=== PATIENT | female | born 2000 | race Caucasian/White ===

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

== ENCOUNTER 2024-02-13 09:01 | Inpatient (IN) | payer OTHER, SELFPAY ==
[2024-02-13] VITALS (14 sets, daily range): BP systolic 93–118; BP diastolic 42–92; PULSE 116–137; RESP 16–25; TEMP 37.2–39.6; O2SAT 94–99; BMI 27.7; BMI 28.8
--- NOTE | 2024-02-13 10:42 | W.ED.BACK ---
HPI - Back Pain/Injury General: Chief Complaint: Back Pain/Injury Stated Complaint: kidney problems Time Seen by Provider: 02/13/24 09:03 History of Present Illness: 23-year-old female presents emergency room complaining of bilateral flank pain primarily on the right is also present on the left. She was seen a week ago for UTI started on antibiotic and she is behaving similarly tolerated. She did notice this seems to have improved she had a temp reported of 1051 at home this morning she took ibuprofen. She is tachycardic and generally not feeling well on arrival. Very nauseous no vomiting. Associated symptoms: Reports chills, dysuria, fatigue, fever(s) and urinary urgency; Deny abdominal pain Related Data Home Medications Medication Instructions Recorded Confirmed No Known Home Medications 02/13/24 02/13/24 Allergies Allergy/AdvReac Type Severity Reaction Status Date / Time No Known Allergies Allergy Verified 02/13/24 09:31 Review of Systems Const: Reports: fever(s), chills, fatigue and malaise Card: Denies: chest pain Resp: Denies: dyspnea GI: Denies: abdominal pain : Reports: dysuria, urinary frequency and urinary urgency Musc: Reports: back pain; Denies: neck pain Skin/Breast: Denies: rash PFSH ED PFSH: Medical History No pertinent past medical history Patient denies history of hypertension, hypercholesterolemia, lung, liver, heart, kidney or thyroid disorders, bleeding or clotting disorders, PE/DVT. PCP: René Almendarez Surgical History No history of previous surgery Family History Grandmother Hypertension maternal Mitral valve prolapse maternal Denies family history of Colon cancer Ovarian cancer Diabetes Hyperlipidemia Breast cancer Uterine cancer Stroke Social History Smoking and tobacco/nicotine status: never used tobacco/nicotine Substance/Drug Use: never Physical Exam Const: GENERAL APPEARANCE: cooperative ORIENTATION/CONSCIOUSNESS: Yes awake, Yes oriented to person, Yes oriented to place and Yes oriented to time HENMT: COMMON NORMALS: normocephalic, atraumatic and hearing grossly normal bilaterally HEAD & SCALP: normocephalic and atraumatic Resp: COMMON NORMALS: normal respiratory effort, No retractions, No use of accessory muscles and clear to auscultation bilaterally AUSCULTATION: clear to auscultation bilaterally Cardio: COMMON NORMALS: regular rhythm and No murmurs present (Cardio) RATE: tachycardic RHYTHM: regular rhythm GI: COMMON NORMALS: Soft to palpation and No hepatosplenomegaly present AUSCULTATION: Yes normoactive bowel sounds PALPATION: Yes Soft to palpation, No Tenderness to palpation present (GI), No Guarding due to palpation present (GI) and Yes No hepatosplenomegaly present : BLADDER/KIDNEY EXAM: Yes CVA tenderness Back/Pelvis: GENERAL BACK: Yes CVA tenderness CVA tenderness: bilateral Extremity: COMMON NORMALS: normal to inspection, capillary refill normal, no clubbing, cyanosis or edema, no calf tenderness and no pedal edema Neuro: SENSORIUM/ORIENTATION: Yes oriented to person, Yes oriented to place and Yes oriented to time Skin: COMMON NORMALS: no rashes or lesions noted GENERAL SKIN EXAM: no rashes or lesions noted Course Vital Signs: Vital signs: Vital Signs Temperature 100.2 F H 02/13/24 12:22 Pulse Rate 137 H 02/13/24 15:01 Respiratory Rate 25 H 02/13/24 14:04 Blood Pressure 106/92 02/13/24 15:01 Pulse Oximetry 97 02/13/24 15:01 Oxygen Delivery Me thod Room Air 02/13/24 14:04 MDM - Back Pain/Injury Medical Decision Making Patient presents tachycardic with a fever. White count elevated. She has failed outpatient antibiotic. Cultures have been done started on Rocephin continue IV fluids lactate 1.2. No documented blood pressures less than 90. Creatinine bilirubin or normal platelets. Lactate did not meet criteria. Patient given incremental fluid boluses due to her tachycardia. Labs 02/13/24 10:23 02/13/24 10:23 Radiology Impressions Abdomen/Pelvis CT 02/13/24 11:02 IMPRESSION: 1. Mild circumferential urinary bladder wall thickening and perivesicular edema a subtle right urothelial thickening. An ascending urinary tract infection could produce this appearance. 2. Additional findings, as above. Laboratory Results WBC 13.10 10^3/uL (3.29-11.43) H 02/13/24 10:23 RBC 4.95 10^6/uL (3.85-5.65) 02/13/24 10:23 Hgb 12.70 g/dL (11.27-16.99) 02/13/24 10:23 Hct 40.8 % (36-47) 02/13/24 10:23 MCV 82.4 fl (85-98) L 02/13/24 10:23 MCH 25.7 pg (27-33) L 02/13/24 10:23 MCHC 31.1 g/dL (30-55) 02/13/24 10:23 RDW 17.7 % (12.1-15.1) H 02/13/24 10:23 Plt Count 393 10^3/cmm (157-399) 02/13/24 10:23 MPV 9.8 fL (7.4-10.4) 02/13/24 10:23 Neut % (Auto) 69.7 % 02/13/24 10:23 Lymph % (Auto) 21.5 % 02/13/24 10:23 [place] % (Auto) 7.9 % 02/13/24 10:23 Eos % (Auto) 0.5 % 02/13/24 10:23 Baso % (Auto) 0.2 % 02/13/24 10:23 Neut # (Auto) 9.12 10^3/uL (1.8-7.7) H 02/13/24 10:23 Lymph # (Auto) 2.8 10^3/uL (0.8-4.8) 02/13/24 10:23 [place] # (Auto) 1.0 10^3/uL (0.2-0.9) H 02/13/24 10:23 Eos # (Auto) 0.1 10^3/uL (0.0-0.8) 02/13/24 10:23 Baso # (Auto) 0.0 10^3/uL (0.0-0.1) 02/13/24 10:23 Nucleated RBC % (auto) 0 % 02/13/24 10:23 Nucleated RBCs # 0.0 /100WBC 02/13/24 10:23 Sodium 140 mmol/L (136-145) 02/13/24 10:23 Potassium 3.9 mmol/L (3.5-5.1) 02/13/24 10:23 Chloride 101 mmol/L (98-107) 02/13/24 10:23 Carbon Dioxide 22 mmol/L (22-29) 02/13/24 10:23 Anion Gap 20.9 (5-19) H 02/13/24 10:23 BUN 10 mg/dL (6-20) 02/13/24 10:23 Creatinine 0.6 mg/dL (0.5-0.9) 02/13/24 10:23 GFR Calculation 126.2 mL/min (90-130) 02/13/24 10:23 Glucose 117 mg/dL (65-115) H 02/13/24 10:23 Calculated Osmolality 290 mOsm/kg (285-295) 02/13/24 10:23 Lactic Acid 1.6 mmol/L (0.5-2.2) 02/13/24 10:23 Calcium 9.4 mg/dL (8.5-10.5) 02/13/24 10:23 Total Bilirubin 0.6 mg/dL (0.15-1.2) 02/13/24 10:23 AST 42 U/L (0-32) H 02/13/24 10:23 ALT 54 U/L (0-33) H 02/13/24 10:23 Alkaline Phosphatase 94 U/L (35-105) 02/13/24 10:23 Total Protein 8.4 g/dL (6.6-8.7) 02/13/24 10:23 Albumin 4.3 g/dL (3.5-5.2) 02/13/24 10:23 Globulin 4.1 g/dL (1.3-4.6) 02/13/24 10:23 Procalcitonin 0.06 ng/mL (0-0.5) 02/13/24 10:23 HCG, Qual Negative (Negative) 02/13/24 10:23 Urine Color Yellow (Yellow) 02/13/24 12:25 Urine Appearance Cloudy (CLEAR) A 02/13/24 12:25 Urine pH 6.0 (5-7) 02/13/24 12:25 Ur Specific Junction 1.014 (1.005-1.030) 02/13/24 12:25 Urine Protein 2+ (Negative) A 02/13/24 12:25 Urine Glucose (UA) Negative (Normal) 02/13/24 12:25 Urine Ketones Trace (Negative) 02/13/24 12:25 Urine Blood 1+ (Negative) A 02/13/24 12:25 Urine Nitrate Positive (Negative) A 02/13/24 12:25 Urine Bilirubin Negative (Negative) 02/13/24 12:25 Urine Urobilinogen 1.0 mg/dL (Negative) 02/13/24 12:25 Ur Leukocyte Esterase 3+ (Negative) A 02/13/24 12:25 Urine RBC 0-2 /hpf (0-2) 02/13/24 12:25 Urine WBC >100 /hpf (0-5) H 02/13/24 12:25 Ur Squamous Epith Cells 0-5 /hpf (0-5) 02/13/24 12:25 Amorphous Sediment Not Reportable 02/13/24 12:25 Urine Bacteria 4+ /hpf (NONE) H 02/13/24 12:25 Hyaline Casts 2.87 /lpf 02/13/24 12:25 All radiology interpretation(s) finalized by discharge Discharge Plan Discharge Patient Disposition: Admitted As Inpatient Admit Provider: Jhony Schmidt Clinical Impression: Pyelonephritis of right kidney Condition: Stable Coding Level of Care Code ED Intelligent Systems Engineer for Aryan Zapata
[2024-02-13 10:43] LABS: Basophils % 0.2 %; Eosinophils # 0.1 10^3/uL (0.0-0.8); Eosinophils % 0.5 %; Hematocrit 40.8 % (36-47); Lymphocytes # 2.8 10^3/uL (0.8-4.8); Lymphocytes % 21.5 %; Mean Corpuscular HGB Conc 31.1 g/dL (30-55); Mean Corpuscular Hemoglobin 25.7 pg (27-33); Mean Corpuscular Volume 82.4 fl (85-98); Mean Platelet Volume 9.8 fL (7.4-10.4); Monocytes % 7.9 %; Neutrophils # 9.12 10^3/uL (1.8-7.7); Neutrophils % 69.7 %; Nucleated Red Blood Cells % 0 %; Platelet Count 393 10^3/cmm (157-399); Red Blood Count 4.95 10^6/uL (3.85-5.65); Red Cell Distribution Width 17.7 % (12.1-15.1)
[2024-02-13] MEDS: sodium chloride 0.9% 1,000 ML 999 ML IV ×2 (10:55→11:36)
[2024-02-13 10:56] LABS: Lactic Sepsis W/Reflex 1.6 mmol/L (0.5-2.2)
[2024-02-13 11:01] LABS: Alanine Aminotransferase 54 U/L (0-33); Albumin Level 4.3 g/dL (3.5-5.2); Alkaline Phosphatase 94 U/L (35-105); Anion Gap 20.9 (5-19); Aspartate Amino Transferase 42 U/L (0-32); Blood Urea Nitrogen 10 mg/dL (6-20); Calcium 9.4 mg/dL (8.5-10.5); Carbon Dioxide 22 mmol/L (22-29); Chloride 101 mmol/L (98-107); Creatinine Clr Calc Pharmacy 124.2459; Globulin 4.1 g/dL (1.3-4.6); Glomerular Filtration Rate 126.2 mL/min (90-130); Glucose 117 mg/dL (65-115); Osmolality Calculated 290 mOsm/kg (285-295); Potassium 3.9 mmol/L (3.5-5.1); Sodium 140 mmol/L (136-145); Total Bilirubin 0.6 mg/dL (0.15-1.2); Total Protein 8.4 g/dL (6.6-8.7)
--- NOTE | 2024-02-13 11:02 | CTR_ITS ---
PROCEDURE INFORMATION: Exam: CT Abdomen And Pelvis Without Contrast Exam date and time: 02/13/2024 11:50 AM Age: 23 years old Clinical indication: Abdominal pain; Flank; Lower; Additional info: Flank pain TECHNIQUE: Imaging protocol: Computed tomography of the abdomen and pelvis without contrast. Axial, coronal and sagittal reformatted images were created and reviewed. Radiation optimization: All CT scans at this facility use at least one of these dose optimization techniques: automated exposure control; mA and/or kV adjustment per patient size (includes targeted exams where dose is matched to clinical indication); or iterative reconstruction. COMPARISON: US pelvic complete* [id number] 09/25/2019 4:53 AM RADIATION DOSE METRICS: Total DLP (mGy-cm): 424 FINDINGS: Liver: Unremarkable. Gallbladder and biliary ducts: No radiodense gallstones. No biliary ductal dilatation. Pancreas: Unremarkable. Spleen: Unremarkable. Adrenal glands: Normal. No mass. Kidneys and ureters: Subtle right urothelial thickening. No radiodense calculi. No hydronephrosis. Stomach and bowel: No bowel wall thickening. No obstruction. No pneumatosis. Appendix: Normal. Intraperitoneal space: No free fluid. No organized fluid collection. No free air. Vasculature: Unremarkable. No aneurysm. Lymph nodes: Small mesenteric lymph nodes, nonspecific in appearance. No pathologically enlarged lymph nodes. Urinary bladder: Mild circumferential urinary bladder wall thickening and perivesicular edema. Reproductive: Intrauterine device in place. Bones/joints: No acute osseous abnormality. Soft tissues: Unremarkable. CT/CT kidney stone [id number] IMPRESSION: 1. Mild circumferential urinary bladder wall thickening and perivesicular edema a subtle right urothelial thickening. An ascending urinary tract infection could produce this appearance. 2. Additional findings, as above.
[2024-02-13 11:15] LABS: HCG, Serum Qual Negative (Negative)
[2024-02-13] MEDS: ondansetron 2 mg/ML SDV 2 mL 4 MG IVP (11:24)
[2024-02-13] MEDS: cefTRIAXone 1,000 mg SDV 1000 MG IVP (11:30)
[2024-02-13] MEDS: ketorolac 30 mg/mL INJ IVP (11:46)
[2024-02-13 12:48] LABS: Bilirubin Urine Negative (Negative); Blood Urine 1+ (Negative); Glucose Urine UA Negative (Normal); Ketones Urine Trace (Negative); Leukocyte Esterase Urine 3+ (Negative); Nitrate Urine Positive (Negative); Protein Urine 2+ (Negative); Specific Gravity, Urine 1.014 (1.005-1.030); Urine Appearance Cloudy (CLEAR); Urine Color Yellow (Yellow)
[2024-02-13 12:53] LABS: Add Urine Microscopic? YES; Bacteria Urine 4+ /hpf; Hyaline Casts Urine 2.87 /lpf; RBC Urine 0-2 /hpf (0-2); Squamous Epithelial Cell Urine 0-5 /hpf (0-5); WBC Urine >100 /hpf (0-5)
[2024-02-13 13:44] LABS: Add Urine Culture? Yes
[2024-02-13] MEDS: acetaminophen 325 mg Tablet 650 MG PO ×2 (14:33→19:35)
--- NOTE | 2024-02-13 14:52 | P.HP_ITS ---
Providers/Chief Complaint 2 Admitting Physician: Jhony Schmidt MD Primary Care Provider: René Almendarez, DIRECTOR OF RESIDENTIAL SERVICES-C Chief Complaint: kidney problems History of Present Illness Eileen Leigh is a 23 year old female with a past medical history of G2, P2, no significant past medical history, who presents [facility] due to fatigue, malaise, fevers, chills, nausea, vomiting, right flank pain for the last week. Patient tells me that she was diagnosed with a UTI roughly a week ago, she was treating herself with [id number] medications, however her symptomatology persisted, she reports right flank pain, increased urinary frequency, fevers, chills, nausea, vomiting, she denies being , Review of Systems 2 Const: Reports: fever(s), chills, fatigue and malaise GI: Reports: nausea and vomiting : Reports: flank pain Medications/Allergies Home Medications Medication Instructions Recorded Confirmed Last Taken Type No Known Home Medications 02/13/24 02/13/24 Unknown History Allergies Allergy/AdvReac Type Severity Reaction Status Date / Time No Known Allergies Allergy Verified 02/13/24 09:31 PFSH Acute 2 PFSH: Medical History No pertinent past medical history Patient denies history of hypertension, hypercholesterolemia, lung, liver, heart, kidney or thyroid disorders, bleeding or clotting disorders, PE/DVT. PCP: René Almendarez Surgical History No history of previous surgery Family History Grandmother Hypertension maternal Mitral valve prolapse maternal Denies family history of Colon cancer Ovarian cancer Diabetes Hyperlipidemia Breast cancer Uterine cancer Stroke Social History Smoking and tobacco/nicotine status: never used tobacco/nicotine Substance/Drug Use: never Vitals/I&O/Wt Last Vital Signs Temp 100.2 F H 02/13/24 12:22 Pulse 116 H 02/13/24 09:25 Resp 16 02/13/24 09:25 BP 107/62 02/13/24 09:25 Pulse Ox 99 02/13/24 09:25 O2 Del Method Room Air 02/13/24 09:25 Weight last 48 hrs Weight 64.41 kg Physical Exam 2 Const: COMMON NORMALS: no acute distress and patient oriented x3 HENMT: COMMON NORMALS: normocephalic HEAD & SCALP: normocephalic Neck/C-Spine: COMMON NORMALS: no JVD Resp: COMMON NORMALS: normal respiratory effort, No retractions, No use of accessory muscles and clear to auscultation bilaterally AUSCULTATION: clear to auscultation bilaterally Cardio: COMMON NORMALS: S1 normal heart sound present and S2 normal heart sound present RATE: tachycardic RHYTHM: regular rhythm HEART SOUNDS: S1 normal heart sound present and S2 normal heart sound present GI: COMMON NORMALS: Normal to inspection, nondistended, normoactive bowel sounds present, Soft to palpation and non-tender : OTHER: Right CVA tenderness Extremity: COMMON NORMALS: no calf tenderness and no pedal edema Neuro: COMMON NORMALS: patient oriented x3, CN's II-XII intact bilaterally and moves all extremities Psych: COMMON NORMALS: mental status grossly normal Data 02/13/24 10:23 02/13/24 10:23 Micro: Microbiology 02/13/24 10:19 Blood Culture - Preliminary Blood SPECIMEN COLLECTED 02/13/24 10:15 Blood Culture - Preliminary Blood SPECIMEN COLLECTED A&P Assessment and plan (1) Pyelonephritis of right kidney: (2) Sepsis: Plan Pyelonephritis right kidney, with sepsis ? Sepsis features met given tachycardia, febrile, source of infection, UTI, pyelonephritis, ? Plan ? IV fluids ? IV Zosyn ? Zofran for nausea ? Morphine for pain ? Tylenol for fevers ? Follow blood cultures ? Follow urine cultures ? Full code ? Lovenox for DVT prophylaxis Attestations 2 Medical Necessity Statement*: Patient requires hospitalization, inpatient, greater than 2 midnights, for pyelonephritis right kidney, sepsis Diagnoses Pyelonephritis of right kidney N12 Sepsis A41.9
[2024-02-13 15:24] LABS: Procalcitonin 0.06 ng/mL (0-0.5)
[2024-02-13] MEDS: morphine 4 mg/mL SDV 1 mL 1 MG IVP ×2 (15:46→19:55)
[2024-02-13 15:51] LABS: Estmated Average Glucose 97
[2024-02-13] MEDS: sodium chloride 0.9% 500 ML 999 ML IV (16:02)
[2024-02-13 16:32] LABS: C Reactive Protein 103.1 mg/L (0.0-4.9); Thyroid Stimulating Hormone 0.02 uIU/mL (0.27-4.20)
[2024-02-13] MEDS: ibuprofen 200 mg Tablet PO (16:45)
[2024-02-13] MEDS: sodium chloride 0.9% 1,000 ML 125 ML IV ×2 (16:47→22:58)
[2024-02-13] MEDS: piperacillin-tazobactam 3.375 GM in sodium chloride 0.9% (plus) 50 ML IV ×2 (16:50→22:58)
[2024-02-13] MEDS: enoxaparin 40 mg/0.4 mL Syringe SUBCUT (17:41)
--- NOTE | 2024-02-13 20:44 | ECG_ITS ---
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 Measurements Intervals [place] Rate: 122 P: 54 FL: 127 QRS: 20 QRSD: 77 T: 15 QT: 328 QTc: 469 Interpretive Statements SINUS TACHYCARDIA POSSIBLE RIGHT VENTRICULAR CONDUCTION DELAY [RSR (QR) IN V1/V2] NONSPECIFIC ST & T-WAVE ABNORMALITY ABNORMAL RHYTHM ECG No previous ECG available for comparison Electronically Signed On 02-13-2024 23:16:40 CDT by Norma Pulido M.D. [id number]
[2024-02-14] VITALS (110 sets, daily range): BP systolic 65–147; BP diastolic 39–88; PULSE 66–118; RESP 16–37; TEMP 36.8–39.4; O2SAT 71–99
[2024-02-14] MEDS: ibuprofen 200 mg Tablet PO ×2 (00:01→14:40)
[2024-02-14] MEDS: ketorolac 30 mg/mL INJ IVP (01:13)
--- NOTE | 2024-02-14 01:39 | PC.NURSE ---
This RN asked aide to recheck midnight BP. On recheck pt BP was 75/36. This RN went to assess pt and rechecked BP on other arm and got about the same BP. This RN placed the pt and trendelenburg and rechecked, BP was 87/51. Salome came to bedside and gave the verbal to switch continuous fluids to a bolus and transfer pt to ICU. Report called. Pt and mother updated.
--- NOTE | 2024-02-14 02:15 | PC.NURSE ---
Pt transferred to ICU at 0200.
[2024-02-14] MEDS: lactated ringers 1,000 ML 999 ML IV (02:54)
[2024-02-14 03:13] LABS: Basophils % 0.2 %; Eosinophils % 0.2 %; Hematocrit 31.2 % (36-47); Lymphocytes # 2.5 10^3/uL (0.8-4.8); Lymphocytes % 18.1 %; Mean Corpuscular HGB Conc 30.1 g/dL (30-55); Mean Corpuscular Hemoglobin 25.5 pg (27-33); Mean Corpuscular Volume 84.8 fl (85-98); Mean Platelet Volume 9.7 fL (7.4-10.4); Monocytes # 1.7 10^3/uL (0.2-0.9); Monocytes % 12.4 %; Neutrophils # 9.27 10^3/uL (1.8-7.7); Neutrophils % 68.6 %; Nucleated Red Blood Cells % 0 %; Platelet Count 240 10^3/cmm (157-399); Red Blood Count 3.68 10^6/uL (3.85-5.65); Red Cell Distribution Width 17.8 % (12.1-15.1); White Blood Count 13.53 10^3/uL (3.29-11.43)
[2024-02-14] MEDS: norepinephrine 4 MG/250 ML BAG 7.5 MG IV ×2 (03:33→15:18)
[2024-02-14 03:44] LABS: Anion Gap 13.4 (5-19); Blood Urea Nitrogen 6 mg/dL (6-20); Calcium 6.7 mg/dL (8.5-10.5); Carbon Dioxide 20 mmol/L (22-29); Chloride 113 mmol/L (98-107); Creatinine Clr Calc Pharmacy 126.4974; Glomerular Filtration Rate 126.2 mL/min (90-130); Glucose 155 mg/dL (65-115); Osmolality Calculated 297 mOsm/kg (285-295); Potassium 3.4 mmol/L (3.5-5.1); Sodium 143 mmol/L (136-145)
[2024-02-14] MEDS: sodium chloride 0.9% 1,000 ML 125 ML IV ×3 (04:03→16:37)
[2024-02-14 06:21] LABS: Alanine Aminotransferase 34 U/L (0-33); Alkaline Phosphatase 65 U/L (35-105); Aspartate Amino Transferase 23 U/L (0-32); Globulin 2.5 g/dL (1.3-4.6); Total Bilirubin 0.3 mg/dL (0.15-1.2); Total Protein 5.5 g/dL (6.6-8.7)
[2024-02-14] MEDS: piperacillin-tazobactam 3.375 GM in sodium chloride 0.9% (plus) 50 ML IV ×2 (07:39→14:44)
[2024-02-14] MEDS: acetaminophen 325 mg Tablet 650 MG PO (08:47)
[2024-02-14] MEDS: midodrine 5 mg TABLET PO (09:28)
[2024-02-14 10:04] LABS: Free T4 Free Thyroxine 2.05 ng/dL (0.82-1.77); T3 Free 2.9 PG/ML (2.0-4.4)
[2024-02-14] MEDS: albumin 50 G/200 ML BAG 60 G IV (13:19)
[2024-02-14] MEDS: midodrine 5 mg TABLET 10 MG PO (13:24)
--- NOTE | 2024-02-14 14:50 | P.PN_ITS ---
Subjective 2 Subjective: Patient was seen this morning, she is alert oriented x 3, following all commands, febrile this morning, she is on 2 of Levophed, she tells me that she is feeling quite well, no nausea, no vomiting or abdominal pain still having some right flank pain, Vitals/I&O/Wt Last Vital Signs Temp 98.2 F 02/14/24 12:00 Pulse 78 02/14/24 12:00 Resp 21 H 02/14/24 12:00 BP 95/55 02/14/24 12:00 Pulse Ox 97 02/14/24 09:30 O2 Del Method Room Air 02/13/24 23:57 02/13/24 02/14/24 02/14/24 22:59 06:59 14:59 Intake Total 3442.917 / 3442.917 2215.875 / 5658.792 1434.25 / 1434.25 Output Total 900 / 900 600 / 1500 Balance 2542.917 / 2542.917 1615.875 / 4158.792 1434.25 / 1434.25 Weight last 48 hrs Weight 71.35 kg Weight 66.814 kg Weight 64.41 kg Physical Exam 2 Const: COMMON NORMALS: no acute distress and patient oriented x3 Resp: COMMON NORMALS: normal respiratory effort, No retractions, No use of accessory muscles and clear to auscultation bilaterally AUSCULTATION: clear to auscultation bilaterally Cardio: COMMON NORMALS: regular rate, regular rhythm, S1 normal heart sound present and S2 normal heart sound present RATE: regular rate RHYTHM: r egular rhythm HEART SOUNDS: S1 normal heart sound present and S2 normal heart sound present GI: COMMON NORMALS: Normal to inspection, nondistended, normoactive bowel sounds present and non-tender Extremity: COMMON NORMALS: no pedal edema Neuro: COMMON NORMALS: patient oriented x3 Psych: COMMON NORMALS: mental status grossly normal Sepsis: Is patient septic: Yes Focused sepsis exam performed: Yes F ocused sepsis exam: DP PT pulses palpable, cap refill less than 2 seconds, no mottling Date exam was performed: 02/14/24 Time exam was performed: 08:30 Data 02/14/24 02:51 02/14/24 02:51 Micro: Microbiology 02/13/24 10:19 Blood Culture - Preliminary Blood NEGATIVE TO DATE 02/13/24 10:15 Blood Culture - Preliminary Blood NEGATIVE TO DATE A&P Assessment and plan (1) Pyelonephritis of right kidney: (2) Sepsis: (3) Septic shock: Plan Pyelonephritis right kidney, with sepsis ? Sepsis features met given tachycardia, febrile, source of infection, UTI, pyelonephritis, -Levophed at 2 -Last fever at 4 AM, has been afebrile since ? Plan ? IV fluids ? IV Zosyn ? Zofran for nausea ? Morphine for pain ? Tylenol for fevers ? Follow blood cultures ? Follow urine cultures -Wean off Levophed, will start on midodrine 10 every 8 hours, increase fluids to 125 cc, 1 dose albumin ? Full code ? Lovenox for DVT prophylaxis Attestations 2 Medical Necessity Statement*: Patient requires hospitalization for septic shock secondary to pyelonephritis Diagnoses Pyelonephritis of right kidney N12 Sepsis A41.9 Septic shock A41.9; R65.21
[2024-02-14] MEDS: TRAMadol 50 mg Tablet PO (15:22)
[2024-02-14] MEDS: LORazepam 2 mg/mL INJ 1 mL 0.5 MG IVP ×2 (15:27→17:43)
--- NOTE | 2024-02-14 15:34 | XRR_ITS ---
PROCEDURE INFORMATION: Exam: XR Chest Exam date and time: 02/14/2024 4:13 PM Age: 23 years old Clinical indication: Device placement; Patient HX: Lt side picc line; Additional info: Post picc insertion, paul placing in icu 7. Should be ready at 1600 TECHNIQUE: Imaging protocol: Radiologic exam of the chest. Views: 1 view. COMPARISON: CT kidney stone [id number] 02/13/2024 11:50 AM FINDINGS: Tubes, catheters and devices: Left upper extremity PICC with the tip at the superior vena cava. Lungs: Right middle lobe and right lower lobe airspace disease suspicious for pneumonia. Pleural spaces: No pleural effusion. No pneumothorax. Heart/Mediastinum: The cardiac silhouette and mediastinal contours are unremarkable. Bones/joints: Unremarkable for age. XR/XR chest 1V portable [id number] IMPRESSION: 1. Left upper extremity PICC with the tip at the superior vena cava. 2. Right middle lobe and right lower lobe airspace disease suspicious for pneumonia. Recommend followup chest imaging to insure resolution of these findings.
--- NOTE | 2024-02-14 16:08 | PC.NURSE ---
1500 C/o being cold, temp 99.6 oral, extra blankets given. C/o worse back pain. Notified Dr. Schmidt. New orders.
--- NOTE | 2024-02-14 16:11 | PC.NURSE ---
1550 Alison here to put in PIIC line. Patients mother at bedside helping calm her and encouraging deep breathing.
--- NOTE | 2024-02-14 16:13 | PC.NURSE ---
5835 called, updated on condition and why she appeared scared when he was talking to her on the phone a short time ago.
--- NOTE | 2024-02-14 16:47 | PICC.NOTE ---
Addendum entered by Alison Edward RN 02/15/24 13:33: LEFT basilic vein accessed x 1 stick Original Note: Triple lumen PICC placed to left basilic vein. Referred to vascular access nurse for PICC placement due to use of vasopressors. Risks and benefits discussed and informed consent obtained from pt. Right arm assessed with no viable veins found. Left arm assessed with left basilic vein measuring 3.9 mm, straight, and apparent best choice for placement. Using sterile technique and MST, right basilic vein accessed x 1 stick. Mid-arm circumference measured 10 cm from left AC 28 cm. Trimmed cath 41 cm with 5 cm external length noted. CXR shows tip to appear to be in the distal SVC. Awaiting radiologist report. Line secured with stat-lock. Insertion site covered with Biopatch, gauze, and TSM. Report given to bedside nurse, YAA Rivera.
[2024-02-14] MEDS: ondansetron 2 mg/ML SDV 2 mL 4 MG IVP (16:48)
[2024-02-14 17:10] LABS: Anion Gap 15.7 (5-19); Blood Urea Nitrogen 6 mg/dL (6-20); Calcium 7.2 mg/dL (8.5-10.5); Carbon Dioxide 19 mmol/L (22-29); Chloride 111 mmol/L (98-107); Creatinine Clr Calc Pharmacy 196.1186; Glomerular Filtration Rate 201.5 mL/min (90-130); Glucose 113 mg/dL (65-115); Osmolality Calculated 292 mOsm/kg (285-295); Potassium 3.7 mmol/L (3.5-5.1); Sodium 142 mmol/L (136-145)
[2024-02-14 17:11] LABS: Lactic Sepsis W/Reflex 0.9 mmol/L (0.5-2.2)
--- NOTE | 2024-02-14 17:19 | PC.NURSE ---
0930 Patient ask for oxygen, ask if having a little problem feeling like she's breathing easily, answered yes, Ox Sat at 89%. Placed on 2l N/C.
--- NOTE | 2024-02-14 17:25 | ECG_ITS ---
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 Measurements Intervals [place] Rate: 95 P: 7 SD: 141 QRS: 68 QRSD: 75 T: 45 QT: 330 QTc: 416 Interpretive Statements SINUS RHYTHM NONSPECIFIC ST & T-WAVE ABNORMALITY Compared to ECG 02/13/2024 20:53:38 Sinus tachycardia no longer present T-wave abnormality still present Electronically Signed On 02-15-2024 08:06:44 CDT by Thien Raymond M.D. [id number]
[2024-02-14] MEDS: enoxaparin 40 mg/0.4 mL Syringe SUBCUT (17:47)
--- NOTE | 2024-02-14 23:45 | ECG_ITS ---
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 Measurements Intervals [place] Rate: 119 P: 73 DC: 157 QRS: 72 QRSD: 76 T: 48 QT: 339 QTc: 477 Interpretive Statements SINUS TACHYCARDIA POSSIBLE RIGHT VENTRICULAR CONDUCTION DELAY [RSR (QR) IN V1/V2] NONSPECIFIC ST & T-WAVE ABNORMALITY ABNORMAL RHYTHM ECG Compared to ECG 02/14/2024 17:36:28 Sinus rhythm no longer present T-wave abnormality still present Electronically Signed On 02-15-2024 23:07:01 CDT by Norma Pulido M.D. [id number]
[2024-02-15] VITALS (50 sets, daily range): BP systolic 91–130; BP diastolic 46–83; PULSE 61–127; RESP 14–43; TEMP 35.9–37.4; O2SAT 82–98
[2024-02-15] MEDS: methylPREDNISolone sod succ 40 mg/mL INJ IVP ×2 (00:05→04:54)
[2024-02-15] MEDS: pantoprazole 40 mg SDV IVP ×2 (00:05→08:56)
[2024-02-15] MEDS: linezolid premix 600 MG/300 ML PREMIX 300 MG IV ×3 (00:05→22:48)
[2024-02-15] MEDS: piperacillin-tazobactam 3.375 GM in sodium chloride 0.9% (plus) 50 ML IV ×4 (00:06→22:48)
[2024-02-15] MEDS: azithromycin 500 MG in sodium chloride 0.9% 250 ML 250 MG IV (00:07)
[2024-02-15] MEDS: acetaminophen 325 mg Tablet 650 MG PO ×2 (00:24→19:45)
[2024-02-15] MEDS: ondansetron 2 mg/ML SDV 2 mL 4 MG IVP (00:27)
--- NOTE | 2024-02-15 00:56 | PC.NURSE ---
Patient has had complaints of increasing weakness, increasing shortness of breath, oxygen saturation as low as 83% on room air placed on 3.5 liters via nc to maintain saturation over 90%, color increasingly pale, c/o dizziness with activity, chest pain with activity. Lungs diminished, respirations shallow and rapid, tachycardic at times. Has been afebrile thus far. Physician notified of changes in respiratory status and overall change in condition. New orders received. Pt. mother remains at bedside.
[2024-02-15 00:59] LABS: MRSA PCR OZH (swab) NOT DETECTED (Not Detecte)
[2024-02-15 01:03] LABS: Troponin(5th) Baseline 10 ng/L (0-10)
[2024-02-15 01:05] LABS: Lactate (Lactic Acid level) 1.1 mmol/L (0.5-2.2)
--- NOTE | 2024-02-15 01:15 | CTR_ITS ---
PROCEDURE INFORMATION: Exam: CTA Chest With Contrast Exam date and time: 02/15/2024 1:54 AM Age: 23 years old Clinical indication: Shortness of breath; Additional info: Hypox, tachy TECHNIQUE: Imaging protocol: Computed tomographic angiography of the chest with contrast. Exam focused on the arteries. 3D rendering (Not supervised by radiologist): MIP and/or 3D reconstructed images were created by the technologist. Radiation optimization: All CT scans at this facility use at least one of these dose optimization techniques: automated exposure control; mA and/or kV adjustment per patient size (includes targeted exams where dose is matched to clinical indication); or iterative reconstruction. Contrast material: [id number]; Contrast volume: 75 ml; Contrast route: INTRAVENOUS (IV); COMPARISON: CR XR chest 1V portable [id number] 02/14/2024 4:13 PM RADIATION DOSE METRICS: Total DLP (mGy-cm): 353.04 FINDINGS: Pulmonary arteries: No central or segmental pulmonary emboli. Evaluation of the more distal branches is limited by motion artifact. Aorta: Unremarkable. No aortic aneurysm. No aortic dissection. Lungs: There is interlobular septal thickening. Bilateral pulmonary edema. Lower lobe atelectasis or other infiltrates. Pleural spaces: Small to moderate pleural effusions. Heart: Unremarkable. No cardiomegaly. No pericardial effusion. Lymph nodes: Unremarkable. No enlarged lymph nodes. Kidneys: Question mild stranding noted in the right perinephric region, incompletely evaluated on this study. Bones/joints: Unremarkable. No acute fracture. Soft tissues: Unremarkable. CT/CT angio chest PE protcl [id number] IMPRESSION: 1. No central or segmental pulmonary emboli. Evaluation of the more distal branches is limited by motion artifact. 2. Bilateral pulmonary edema. Lower lobe atelectasis or other infiltrates. Small to moderate pleural effusions. 3. Question mild stranding noted in the right perinephric region, incompletely evaluated on this study. Correlate with urinalysis to exclude pyelonephritis.
--- NOTE | 2024-02-15 01:48 | ECG_ITS ---
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 Measurements Intervals [place] Rate: 106 P: 71 CO: 148 QRS: 58 QRSD: 85 T: 29 QT: 337 QTc: 448 Interpretive Statements SINUS TACHYCARDIA POSSIBLE RIGHT VENTRICULAR CONDUCTION DELAY [RSR (QR) IN V1/V2] NONSPECIFIC T-WAVE ABNORMALITY ABNORMAL RHYTHM ECG Compared to ECG 02/15/2024 00:18:52 No significant changes Electronically Signed On 02-15-2024 23:14:12 CDT by Norma Pulido M.D. [id number]
[2024-02-15] MEDS: iohexol 350 mg/mL 500 mL Btl (per mL) IV (02:11)
[2024-02-15] MEDS: morphine 4 mg/mL SDV 1 mL 1 MG IVP ×2 (02:30→06:48)
[2024-02-15 02:39] LABS: Basophils % 0.1 %; Eosinophils # 0.1 10^3/uL (0.0-0.8); Eosinophils % 0.4 %; Hematocrit 29.8 % (36-47); Lymphocytes # 1.5 10^3/uL (0.8-4.8); Lymphocytes % 10.4 %; Mean Corpuscular HGB Conc 31.2 g/dL (30-55); Mean Corpuscular Hemoglobin 25.8 pg (27-33); Mean Corpuscular Volume 82.5 fl (85-98); Mean Platelet Volume 10.2 fL (7.4-10.4); Monocytes # 0.6 10^3/uL (0.2-0.9); Monocytes % 4.3 %; Neutrophils # 11.89 10^3/uL (1.8-7.7); Neutrophils % 84.3 %; Nucleated Red Blood Cells % 0 %; Platelet Count 231 10^3/cmm (157-399); Red Blood Count 3.61 10^6/uL (3.85-5.65); Red Cell Distribution Width 17.5 % (12.1-15.1)
--- NOTE | 2024-02-15 02:48 | USCV_ITS ---
Alexosiris Eileen Age: 23 Gender: F : 2000 Exam Date: 02/15/2024 03:58 Ordering Phys: Chucky Mcmahon MD Technologist: YVETTE Exam Location: [facility] [place] Indication: shock, pulmonary edema, UTI BP: 118 / 73 HR: 78 Rhythm: Sinus Technical Quality: Good MEASUREMENTS (Male / Female) Normal Values 2D ECHO LV Diastolic Diameter PLAX 4.1 cm 4.2 - 5.9 / 3.9 - 5.3 cm IVS Diastolic Thickness 1.1 cm 0.6 - 1.0 / 0.6 - 0.9 cm IVS Systolic Thickness 1.4 cm LVPW Diastolic Thickness 1.0 cm 0.6 - 1.0 / 0.6 - 0.9 cm LVPW Systolic Thickness 1.3 cm LVOT Diameter 1.8 cm LV Ejection Fraction 2D Teich 57.5 % LV Ejection Fraction MOD 4C 54.7 % LV Ejection Fraction MOD 2C 59.9 % LV Ejection Fraction 2C AL 61.5 % LA Diameter 2.9 cm Aorta at Sinotubular Diameter 2.1 cm IVC Diameter 1.1 cm M-MODE LA Ao Ratio MM 1.4 AV Cusp Separation MM 1.8 cm DOPPLER AV Peak Velocity 123.0 cm/s LVOT Peak Velocity 84.0 cm/s AV Area Cont Eq vti 1.7 cm squared AV Area Cont Eq pk 1.7 cm squared MV Peak Velocity 124.0 cm/s MV Area PHT 6.4 cm squared Mitral E to A Ratio 1.7 TV Peak Velocity 227.7 cm/s TR Peak Velocity 270.0 cm/s TR Peak Gradient 29.2 mmHg TV Peak E Velocity 61.0 cm/s Right Atrial Pressure 3.0 mmHg Pulmonary Artery Systolic Pressu 32.2 mmHg PV Peak Velocity 91.0 cm/s FINDINGS Left Ventricle Normal left ventricular size and systolic function, EF 60%. No gross wall motion normalities. A linear immobile density traversing the center of the LV cavity most likely an artifact Right Ventricle The right ventricle is normal in size and function. Right Atrium Mobile echodensity in the right atrium, most likely represent prominent eustachian valve Left Atrium Left atrium is upper limit of normal size Mitral Valve No gross abnormalities noted Aortic Valve No gross abnormalities noted Tricuspid Valve Trace to mild tricuspid valve regurgitation. Pulmonic Valve No gross abnormalities noted Pericardium Normal pericardium without effusion. Aorta Normal ascending aorta dimension. IVC The inferior vena cava appears normal. CONCLUSIONS Normal left ventricular size and systolic function, EF 60%. No gross wall motion normalities. A linear immobile density traversing the center of the LV cavity most likely an artifact Normal cardiac chamber sizes. Trace to mild tricuspid valve regurgitation. Mobile dense structure in the right atrium, most likely represent a prominent eustachian valve. No intracardiac masses. No pericardial effusion. No similar previous studies are available for comparison Dr Norma Pulido MD FACC (Electronically Signed) Final Date: 15 February 2024 11:08 S
[2024-02-15 02:59] LABS: Alanine Aminotransferase 27 U/L (0-33); Albumin Level 3.5 g/dL (3.5-5.2); Alkaline Phosphatase 78 U/L (35-105); Aspartate Amino Transferase 21 U/L (0-32); Blood Urea Nitrogen 4 mg/dL (6-20); C Reactive Protein 210.8 mg/L (0.0-4.9); Calcium 7.9 mg/dL (8.5-10.5); Carbon Dioxide 21 mmol/L (22-29); Chloride 108 mmol/L (98-107); Creatinine Clr Calc Pharmacy 196.1186; Glomerular Filtration Rate 201.5 mL/min (90-130); Glucose 102 mg/dL (65-115); Osmolality Calculated 285 mOsm/kg (285-295); Sodium 139 mmol/L (136-145); Total Bilirubin 0.4 mg/dL (0.15-1.2); Total Protein 5.5 g/dL (6.6-8.7)
[2024-02-15 03:00] LABS: Anion Gap 13.7 (5-19); Potassium 3.7 mmol/L (3.5-5.1)
[2024-02-15 03:18] LABS: Procalcitonin 0.85 ng/mL (0-0.5)
[2024-02-15] MEDS: FUROsemide 10 mg/mL SDV 2mL 20 MG IVP ×3 (03:25→18:37)
[2024-02-15] MEDS: FUROsemide 10 mg/mL SDV 4mL 40 MG (03:57)
--- NOTE | 2024-02-15 06:12 | ECG_ITS ---
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 Measurements Intervals [place] Rate: 60 P: 65 GA: 146 QRS: 59 QRSD: 79 T: 30 QT: 410 QTc: 411 Interpretive Statements SINUS RHYTHM WITH SINUS ARRHYTHMIA POSSIBLE RIGHT VENTRICULAR CONDUCTION DELAY [RSR (QR) IN V1/V2] Compared to ECG 02/15/2024 01:48:27 Sinus tachycardia no longer present T-wave abnormality no longer present Electronically Signed On 02-15-2024 23:13:41 CDT by Norma Pulido M.D. [id number]
--- NOTE | 2024-02-15 06:17 | PC.NURSE ---
Pt has had continuing shortness of breath, requires 6 liters oxygen via NC to maintain saturation above 90%. When getting up to use BSC, patient complained of severe light headedness, dizziness, and vision changes. No change in blood pressure during epsiode. Dr. Mcmahon made aware of same, ordered barnett, bedrest, CTA, echo, and 20 mg lasix. Has had 3 liters output since administering lasix. Patient states she feels like breathing workload has decreased since lasix, but oxygen requirements have not changed.
--- NOTE | 2024-02-15 07:57 | US_ITS ---
WS: [id number] ULTRASOUND RENAL TECHNIQUE: Ultrasound examination of both kidneys. CLINICAL INFORMATION: pyelnephritis COMPARISON: CT 02/13/2024 FINDINGS: RIGHT: Right kidney is normal in size and appearance. Echogenicity: Normal. Cortical thickness: 1.4 cm; Normal. Hydronephrosis: None. Perinephric fluid: None. Right kidney measures: 12.2 cm x 5.0 cm x 4.8 cm. LEFT: Left kidney is normal in size and appearance. Echogenicity: Normal. Cortical thickness: 1.1 cm; Normal. Hydronephrosis: None. Perinephric fluid: None. Left kidney measures: 10.3 cm x 4.5 cm x 4.8 cm. Normal visualized aorta. US/US renal BI* [id number] IMPRESSION: 1. Normal renal ultrasound. No hydronephrosis. 2. Kaye catheter in bladder. 3. Small RIGHT greater than LEFT pleural effusions.
[2024-02-15 08:58] LABS: Ferritin 102 ng/mL (15-150); Iron 10 ug/dL (37-145); NT Pro B Type Natriuretic Pept 3091 pg/mL (0-125)
[2024-02-15 09:00] LABS: Percent Saturation 4.4 % (20-50); Total Iron Binding Capacity 227 mcg/dl; Unsaturated Iron Binding 217 ug/dL (112-347)
[2024-02-15 09:22] LABS: Hematocrit 32.1 % (36-47)
[2024-02-15 11:09] LABS: Adenovirus Not Detected (NOT DETECT); Chlamydia Pneumoniae Not Detected (NOT DETECT); Coronavirus 229E,HKU1,NL63,OC4 Not Detected (NOT DETECT); Human Metapneumovirus Not Detected (NOT DETECT); Human Rhinovirus/Enterovirus Not Detected (NOT DETECT); Influenza A Not Detected (NOT DETECT); Influenza A H1 Not Detected (NOT DETECT); Influenza A H1-2009 Not Detected (NOT DETECT); Influenza A H3 Not Detected (NOT DETECT); Influenza B Not Detected (NOT DETECT); Mycoplasma Pneumoniae Not Detected (NOT DETECT); Parainfluenza Virus Type 1 Not Detected (NOT DETECT); Parainfluenza Virus Type 2 Not Detected (NOT DETECT); Parainfluenza Virus Type 3 Not Detected (NOT DETECT); Parainfluenza Virus Type 4 Not Detected (NOT DETECT); Respiratory Syncytial Virus A Not Detected (NOT DETECT); Respiratory Syncytial Virus B Not Detected (NOT DETECT)
[2024-02-15 11:12] LABS: SARS-COV-2 Detected (NOT DETECT)
--- NOTE | 2024-02-15 13:34 | PC.NURSE ---
24 hour PICC dressing change to left upper extremity complete using sterile technique. Moderate amount old bloody drainage noted. No new bleeding or hematoma noted. Insertion site cleansed with CHG. Biopatch applied to insertion site and covered with Sorbaview shield. Pt tolerated well.
[2024-02-15 15:30] LABS: Hematocrit 32.1 % (36-47)
--- NOTE | 2024-02-15 15:34 | P.PN_ITS ---
Subjective 2 Subjective: - Patient was examined this morning, she is alert oriented x 3, following all commands, currently on 6 L, normotensive, off Levophed, she tells me that she feels weak and fatigued, but feels better, no nausea, no vomiting, does have a poor appetite, -CT angiogram of the chest overnight did not show pulmonary embolism, did show pulmonary edema -Troponin series no significant delta tr oponin, no acute ST-T wave changes -Lactic acid within normal limits -Hemoglobin down to 9.3, check hemoglobi n every 6 hours, hemoglobin has improved to 10.2, monitor, no bloody black stools reported does have mild iron deficiency anemia, will monitor is on Lovenox for DVT prophylaxis, Protonix -Echocardiogram CONCLUSIONS Normal left ventricular size and systolic function, EF 60%. No gross wall motion normalities. A linear immobile density traversing the center of the LV cavity most likely an artifact Normal cardiac chamber sizes. Trace to mild tricuspid valve regurgitation. Mobile dense structure in the right atrium, most likely represent a prominent eustachian valve. No intracardiac masses. No pericardial effusion. No similar previous studies are available for comparison -Discussed with family, will continue to monitor her closely she did receive 20 mg IV push Lasix will give another 20 mg IV push Lasix -Patient was reexamined early in the mor rasheed, she has put out 1200 mL of urine currently on 4 L, she is feeling better, I have stopped the azithromycin, stopped her steroids continue Zyvox, continue Zosyn -Blood cultures so far negative, urine c ulture showing gram-negative rods -Patient was reexamined, early in the af ternoon, she was able to sit up into a chair, no significant tachycardiac events, remains off pressors, currently on 4 L, remains afebrile, will give another 20 mg IV push Lasix at about 6 PM -Discussed with patient her COVID test w as positive, she is currently afebrile, does not complain of a cough, her shortness of breath is mostly under control, for now I have elected to not treat her COVID-19, as I am worried about the side effects of Decadron, and remdesivir I think that most of her symptomatology was from pulmonary edema, fluid overload, and then her pyelonephritis and sepsis -Will continue to monitor her if she burns s start to spike fevers, or her respiratory status worsens, we can certainly consider remdesivir and Decadron she voices understanding Vitals/I&O/Wt Last Vital Signs Temp 98.4 F 02/15/24 12:30 Pulse 89 02/15/24 14:30 Resp 18 02/15/24 14:30 BP 102/57 02/15/24 14:30 Pulse Ox 98 02/15/24 14:30 O2 Del Method Nasal Cannula 02/15/24 14:30 O2 Flow Rate 4 02/15/24 14:30 02/15/24 02/15/24 02/15/24 06:59 14:59 22:59 Intake Total 600 / 2770.583 900 / 900 Output Total 3850 / 4100 1900 / 1900 Balance -3250 / -1329.417 -1000 / -1000 Weight last 48 hrs Weight 70.896 kg Weight 71.35 kg Weight 66.814 kg Physical Exam 2 Const: COMMON NORMALS: no acute distress and patient oriented x3 Resp: COMMON NORMALS: normal respiratory effort, No retractions, No use of accessory muscles and clear to auscultation bilaterally AUSCULTATION: clear to auscultation bilaterally Cardio: COMMON NORMALS: regular rate, regular rhythm, S1 normal heart sound present and S2 normal heart sound present RATE: regular rate RHYTHM: r egular rhythm HEART SOUNDS: S1 normal heart sound present and S2 normal heart sound present GI: COMMON NORMALS: Normal to inspection, nondistended, normoactive bowel sounds present and non-tender Extremity: COMMON NORMALS: no pedal edema Neuro: COMMON NORMALS: patient oriented x3 Psych: COMMON NORMALS: mental status grossly normal Urinary Catheter Management: Kaye Latex: Cath Placed During This Visit: yes Urinary Catheter Date of Insertion: 02/15/24 Urinary Catheter Time of Insertion: 03:30 Data 02/15/24 15:11 02/15/24 02:28 Micro: Microbiology 02/13/24 12:25 Urine Culture - Preliminary Urine,Clean Catch Gram Negative Rods 02/13/24 10:19 Blood Culture - Preliminary Blood NEGATIVE TO DATE 02/13/24 10:15 Blood Culture - Preliminary Blood NEGATIVE TO DATE A&P Assessment and plan (1) Pyelonephritis of right kidney: (2) Sepsis: (3) Septic shock: (4) Acute hypoxic respiratory failure: Plan Pyelonephritis right kidney, with sepsis ? Sepsis features met given tachycardia, febrile, source of infection, UTI, pyelonephritis, -Levophed off -Currently afebrile -Acute hypoxic respiratory failure secondary to fluid overload ? Plan ? IV fluids have been discontinued ? IV Zosyn -IV linezolid -Lasix 20 mg ? Zofran for nausea ? Morphine for pain ? Tylenol for fevers ? Follow blood cultures ? Follow urine cultures ? Full code ? Lovenox for DVT prophylaxis - Patient was examined this morning, she is alert oriented x 3, following all commands, currently on 6 L, normotensive, off Levophed, she tells me that she feels weak and fatigued, but feels better, no nausea, no vomiting, does have a poor appetite, -CT angiogram of the chest overnight did not show pulmonary embolism, did show pulmonary edema -Troponin series no significant delta troponin, no acute ST-T wave changes -Lactic acid within normal limits -Hemoglobin down to 9.3, check hemoglobin every 6 hours, hemoglobin has improved to 10.2, monitor, no bloody black stools reported does have mild iron deficiency anemia, will monitor is on Lovenox for DVT prophylaxis, Protonix -Echocardiogram CONCLUSIONS Normal left ventricular size and systolic function, EF 60%. No gross wall motion normalities. A linear immobile density traversing the center of the LV cavity most likely an artifact Normal cardiac chamber sizes. Trace to mild tricuspid valve regurgitation. Mobile dense structure in the right atrium, most likely represent a prominent eustachian valve. No intracardiac masses. No pericardial effusion. No similar previous studies are available for comparison -Discussed with family, will continue to monitor her closely she did receive 20 mg IV push Lasix will give another 20 mg IV push Lasix -Patient was reexamined early in the morning, she has put out 1200 mL of urine currently on 4 L, she is feeling better, I have stopped the azithromycin, stopped her steroids continue Zyvox, continue Zosyn -Blood cultures so far negative, urine culture showing gram-negative rods -Patient was reexamined, early in the afternoon, she was able to sit up into a chair, no significant tachycardiac events, remains off pressors, currently on 4 L, remains afebrile, will give another 20 mg IV push Lasix at about 6 PM -Discussed with patient her COVID test was positive, she is currently afebrile, does not complain of a cough, her shortness of breath is mostly under control, for now I have elected to not treat her COVID-19, as I am worried about the side effects of Decadron, and remdesivir I think that most of her symptomatology was from pulmonary edema, fluid overload, and then her pyelonephritis and sepsis -Will continue to monitor her if she does start to spike fevers, or her respiratory status worsens, we can certainly consider remdesivir and Decadron she voices understanding Attestations 2 Medical Necessity Statement*: Patient requires hospitalization for sepsis, pyelonephritis, acute hypoxic respiratory failure Diagnoses Pyelonephritis of right kidney N12 Sepsis A41.9 Septic shock A41.9; R65.21 Acute hypoxic respiratory failure J96.01
[2024-02-15] MEDS: potassium chloride ER 20 mEq Tablet 40 MEQ PO (18:37)
[2024-02-15] MEDS: enoxaparin 40 mg/0.4 mL Syringe SUBCUT (18:38)
--- NOTE | 2024-02-15 19:24 | PC.NURSE ---
Shift summary: Pt stated she feels much better today. Pt was so pale this am as to be white, her color has pinked today. Her O 2 needs have improved, she started the shift off on 6lpm/NC now she is on 4. She denied pain, except during assessment when right flank pressed. She did have pain at that time. This am she did have a couple soft BPs that had MAPS of 64. Her Bp has improved throughout the day. It has been 24 hours since she required Levophed for BP support. She did test positive for Covid. Sinus rhtyhm noted on monitor. She felt well enough to get out of bed and sit in chair today. No dizziness or other symptoms noted while transfering and/or sitting. She performed ADLs and fixed her hair today. She has had 2625 ml of urine output this shift. She has received Lasix twice this shift, ( the last dose at end of shift.)
[2024-02-15] MEDS: pantoprazole 40 mg SDV IV (20:51)
[2024-02-16] VITALS (19 sets, daily range): BP systolic 96–125; BP diastolic 42–78; PULSE 54–91; RESP 16–21; TEMP 36.4–36.8; O2SAT 92–99
[2024-02-16 06:22] LABS: Alanine Aminotransferase 25 U/L (0-33); Albumin Level 4.1 g/dL (3.5-5.2); Alkaline Phosphatase 89 U/L (35-105); Aspartate Amino Transferase 18 U/L (0-32); Blood Urea Nitrogen 16 mg/dL (6-20); Calcium 9.2 mg/dL (8.5-10.5); Carbon Dioxide 27 mmol/L (22-29); Chloride 106 mmol/L (98-107); Creatinine Clr Calc Pharmacy 156.3846; Globulin 2.7 g/dL (1.3-4.6); Glomerular Filtration Rate 155.7 mL/min (90-130); Glucose 112 mg/dL (65-115); Osmolality Calculated 304 mOsm/kg (285-295); Sodium 146 mmol/L (136-145); Total Bilirubin 0.2 mg/dL (0.15-1.2); Total Protein 6.8 g/dL (6.6-8.7)
[2024-02-16 06:25] LABS: Anion Gap 17.4 (5-19); Potassium 4.4 mmol/L (3.5-5.1)
[2024-02-16] MEDS: piperacillin-tazobactam 3.375 GM in sodium chloride 0.9% (plus) 50 ML IV (06:29)
[2024-02-16 06:31] LABS: Procalcitonin 0.55 ng/mL (0-0.5)
[2024-02-16 06:35] LABS: Basophils % 0.1 %; Hematocrit 31.6 % (36-47); Lymphocytes # 2.5 10^3/uL (0.8-4.8); Lymphocytes % 15.2 %; Mean Corpuscular HGB Conc 32.3 g/dL (30-55); Mean Corpuscular Hemoglobin 25.7 pg (27-33); Mean Corpuscular Volume 79.6 fl (85-98); Mean Platelet Volume 10.5 fL (7.4-10.4); Monocytes # 1.2 10^3/uL (0.2-0.9); Monocytes % 7.2 %; Neutrophils # 12.67 10^3/uL (1.8-7.7); Neutrophils % 76.8 %; Nucleated Red Blood Cells % 0 %; Platelet Count 361 10^3/cmm (157-399); Red Blood Count 3.97 10^6/uL (3.85-5.65); Red Cell Distribution Width 16.8 % (12.1-15.1)
[2024-02-16] MEDS: pantoprazole 40 mg SDV IV ×2 (08:35→20:10)
[2024-02-16] MEDS: FUROsemide 10 mg/mL SDV 2mL 20 MG IVP (08:38)
[2024-02-16] MEDS: meropenem 1,000 mg SDV 1000 MG IVP ×2 (10:45→17:21)
[2024-02-16] MEDS: lactobacillus 1 Tablet 1 TAB PO ×2 (13:53→17:22)
[2024-02-16 14:44] LABS: Blood Urea Nitrogen 15 mg/dL (6-20); Calcium 8.7 mg/dL (8.5-10.5); Carbon Dioxide 30 mmol/L (22-29); Chloride 104 mmol/L (98-107); Creatinine Clr Calc Pharmacy 156.3846; Glomerular Filtration Rate 155.7 mL/min (90-130); Glucose 91 mg/dL (65-115); Osmolality Calculated 300 mOsm/kg (285-295); Sodium 145 mmol/L (136-145)
[2024-02-16] MEDS: acetaminophen 325 mg Tablet 650 MG PO (14:47)
[2024-02-16 14:51] LABS: Anion Gap 14.4 (5-19); Potassium 3.4 mmol/L (3.5-5.1)
--- NOTE | 2024-02-16 15:13 | P.PN_ITS ---
Subjective 2 Subjective: Patient was seen this morning, she is alert oriented x 3, following all commands, she denies any fevers, no chills, no cough, no abdominal pain, no flank pain, we discussed her urine results, showing ESBL E. coli UTI, we discussed options are available to her, given her pyelonephritis, her severe sepsis, I would prefer at least 7 more days of IV Invanz rather than Levaquin, given that she was quite sick, septic shock, with pyelonephritis, although her blood cultures are negative so far. After discussing the risk and benefits, she voiced understanding, all questions answered, agreed to proceed. She already has her PICC line in place, we will arrange 7 more days of IV Invanz starting tomorrow I will switch her antibiotics to meropenem, Zosyn was covering the ESBL infection however the ROB was 16. Will also give her Lasix 20 mg dose this morning, as she has crackles in both lungs although diminished compared to yesterday, she is on 2 L, advised her to ambulate, she voiced understanding, all questions answered, mother at bedside Vitals/I&O/Wt Last Vital Signs Temp 98.3 F 02/16/24 14:25 Pulse 71 02/16/24 14:25 Resp 16 02/16/24 14:25 BP 111/72 02/16/24 14:25 Pulse Ox 96 02/16/24 14:25 O2 Del Method Room Air 02/16/24 14:25 O2 Flow Rate 2 02/16/24 08:25 02/16/24 02/16/24 02/16/24 06:59 14:59 22:59 Intake Total 830 / 2020 480 / 480 Output Total 1200 / 3825 Balance -370 / -1805 480 / 480 Weight last 48 hrs Weight 70.896 kg Physical Exam 2 Const: COMMON NORMALS: no acute distress and patient oriented x3 Resp: COMMON NORMALS: normal respiratory effort, No retractions, No use of accessory muscles and clear to auscultation bilaterally AUSCULTATION: clear to auscultation bilaterally Cardio: COMMON NORMALS: regular rate, regular rhythm, S1 normal heart sound present and S2 normal heart sound present RATE: regular rate RHYTHM: r egular rhythm HEART SOUNDS: S1 normal heart sound present and S2 normal heart sound present GI: COMMON NORMALS: Normal to inspection, nondistended, normoactive bowel sounds present and non-tender Extremity: COMMON NORMALS: no pedal edema Neuro: COMMON NORMALS: patient oriented x3 Psych: COMMON NORMALS: mental status grossly normal Urinary Catheter Management: Kaye Latex: Cath Placed During This Visit: yes, but has since been removed by the nurse Reason for Continuing Indwelling Catheter: Decision to DC Catheter Urinary Catheter Date of Insertion: 02/15/24 Urinary Catheter Time of Insertion: 03:30 Date Urinary Catheter Removed: 02/16/24 Time Urinary Catheter Discontinued: 04:00 Data 02/16/24 05:34 02/16/24 14:05 Micro: Microbiology 02/13/24 12:25 Urine Culture - Final Urine,Clean Catch Escherichia coli esbl A&P Assessment and plan (1) Pyelonephritis of right kidney: (2) Sepsis: (3) Septic shock: (4) Acute hypoxic respiratory failure: (5) Infection due to ESBL-producing Escherichia coli: Plan Pyelonephritis right kidney, with sepsis, ESBL E. coli ? Sepsis features met given tachycardia, febrile, source of infection, UTI, pyelonephritis, -Levophed off -Currently afebrile -Acute hypoxic respiratory failure secondary to fluid overload ? Plan ? IV fluids have been discontinued ? IV Zosyn, switch to meropenem -IV linezolid discontinued -Lasix 20 mg 1 dose ? Zofran for nausea ? Morphine for pain ? Tylenol for fevers ? Follow blood cultures ? Follow urine cultures ? Full code ? Lovenox for DVT prophylaxis Patient was seen this morning, she is alert oriented x 3, following all commands, she denies any fevers, no chills, no cough, no abdominal pain, no flank pain, we discussed her urine results, showing ESBL E. coli UTI, we discussed options are available to her, given her pyelonephritis, her severe sepsis, I would prefer at least 7 more days of IV Invanz rather than Levaquin, given that she was quite sick, septic shock, with pyelonephritis, although her blood cultures are negative so far. After discussing the risk and benefits, she voiced understanding, all questions answered, agreed to proceed. She already has her PICC line in place, we will arrange 7 more days of IV Invanz starting tomorrow I will switch her antibiotics to meropenem, Zosyn was covering the ESBL infection however the ROB was 16. Will also give her Lasix 20 mg dose this morning, as she has crackles in both lungs although diminished compared to yesterday, she is on 2 L, advised her to ambulate, she voiced understanding, all questions answered, mother at bedside Attestations 2 Medical Necessity Statement*: Patient requires hospitalization for pyelonephritis right kidney, ESBL E. coli infection Diagnoses Pyelonephritis of right kidney N12 Sepsis A41.9 Septic shock A41.9; R65.21 Acute hypoxic respiratory failure J96.01 Infection due to ESBL-producing Escherichia coli A49.8; Z16.12
[2024-02-16] MEDS: enoxaparin 40 mg/0.4 mL Syringe SUBCUT (17:21)
[2024-02-17] VITALS: BP 108/65; PULSE 74; RESP 16; TEMP 36.7; O2SAT 98
[2024-02-17] MEDS: meropenem 1,000 mg SDV 1000 MG IVP ×2 (01:38→09:10)
[2024-02-17 04:00] VITALS: BP 105/63; PULSE 87; RESP 17; TEMP 36.9; O2SAT 98
[2024-02-17 05:07] LABS: Basophils % 0.3 %; Eosinophils # 0.1 10^3/uL (0.0-0.8); Eosinophils % 0.8 %; Hematocrit 31.7 % (36-47); Lymphocytes # 3.8 10^3/uL (0.8-4.8); Lymphocytes % 42.9 %; Mean Corpuscular HGB Conc 31.2 g/dL (30-55); Mean Corpuscular Hemoglobin 25.2 pg (27-33); Mean Corpuscular Volume 80.7 fl (85-98); Mean Platelet Volume 9.9 fL (7.4-10.4); Monocytes # 0.8 10^3/uL (0.2-0.9); Monocytes % 8.5 %; Neutrophils # 4.17 10^3/uL (1.8-7.7); Neutrophils % 47.2 %; Nucleated Red Blood Cells % 0 %; Platelet Count 366 10^3/cmm (157-399); Red Blood Count 3.93 10^6/uL (3.85-5.65); Red Cell Distribution Width 17.1 % (12.1-15.1); White Blood Count 8.85 10^3/uL (3.29-11.43)
[2024-02-17 05:27] LABS: Alanine Aminotransferase 20 U/L (0-33); Albumin Level 3.5 g/dL (3.5-5.2); Alkaline Phosphatase 76 U/L (35-105); Aspartate Amino Transferase 17 U/L (0-32); Blood Urea Nitrogen 17 mg/dL (6-20); C Reactive Protein 68.9 mg/L (0.0-4.9); Calcium 8.5 mg/dL (8.5-10.5); Carbon Dioxide 30 mmol/L (22-29); Chloride 104 mmol/L (98-107); Creatinine Clr Calc Pharmacy 156.3846; Globulin 2.9 g/dL (1.3-4.6); Glomerular Filtration Rate 155.7 mL/min (90-130); Glucose 87 mg/dL (65-115); Osmolality Calculated 301 mOsm/kg (285-295); Sodium 145 mmol/L (136-145); Total Bilirubin 0.2 mg/dL (0.15-1.2); Total Protein 6.4 g/dL (6.6-8.7)
[2024-02-17 05:31] LABS: Anion Gap 14.3 (5-19); Potassium 3.3 mmol/L (3.5-5.1)
[2024-02-17 05:33] LABS: Procalcitonin 0.38 ng/mL (0-0.5)
[2024-02-17 07:32] VITALS: BP 119/73; PULSE 87; RESP 17; TEMP 36.8; O2SAT 98
[2024-02-17] MEDS: pantoprazole 40 mg SDV IV (09:10)
[2024-02-17] MEDS: lactobacillus 1 Tablet 1 TAB PO (09:11)
--- NOTE | 2024-02-17 10:46 | PM.DCS ---
Discharge Providers Date of Admission: 02/13/24 14:21 Date of Discharge: February 17, 2024 Attending Provider at Admission: Jhony Schmidt MD Attending Provider at Discharge: Jhony Schmidt MD Primary Care Provider: VINOD Song Diagnoses at Discharge Discharge Diagnosis (1) Pyelonephritis of right kidney: Status: Acute (2) Sepsis: Status: Acute (3) Septic shock: Status: Acute (4) Acute hypoxic respiratory failure: Status: Acute (5) Infection due to ESBL-producing Escherichia coli: Status: Acute Reason for Visit Reason for Visit: kidney problems Hospital Course Hospital Course Eileen Leigh is a 23 year old female with a past medical history of G2, P2, no significant past medical history, who presents [facility] due to fatigue, malaise, fevers, chills, nausea, vomiting, right flank pain for the last week. Patient tells me that she was diagnosed with a UTI roughly a week ago, she was treating herself with zydg-ads-vrwdxqy medications, however her symptomatology persisted, she reports right flank pain, increased urinary frequency, fevers, chills, nausea, vomiting, she denies being , Patient was admitted to [facility] for pyelonephritis right kidney with sepsis, septic shock, requiring ICU admission, pressor therapy, broad-spectrum antibiotic therapy, overall patient's clinical condition improved, weaned off pressors, blood cultures so far remain unremarkable, remains afebrile, urine culture showing ESBL E. coli, will discharge patient on ertapenem 1 g IV every 24 hours for 7 remaining days, remove PICC line thereafter, follow-up with primary care provider in 1 to 2 weeks. Patient's hospitalization was complicated with acute respiratory failure, likely secondary to fluid overload, requiring IV diuresis, oxygen therapy, on discharge she is asymptomatic, on room air Patient as well as hospitalization was complicated by COVID-19 positivity, she was relatively asymptomatic, she was not treated for her COVID-19 positivity, and remains afebrile, on room air, no radiographic evidence of COVID-19 pneumonia. Patient was advised to continue self isolate, socially distance, facemask, hand wash. She does have a at home, advised to monitor closely for COVID-19 symptomatology. We also had a detailed discussion with her about increased risk of hypercoagulable events, continue to ambulate, if she develops any calf pain or calf swelling or hemoptysis or chest pain please immediately go to the emergency room. - Continue to hydrate well -Please take ertapenem 1 g IV every 24 hours for 7 days, stop thereafter, remove PICC line thereafter -For your ESBL E. coli infection please follow-up with primary care provider for referral to infectious disease for consideration of chronic suppressive antibiotics or postcoital antibiotics -If you have recurrent fevers, flank pain please go to the emergency room -Please see your primary care provider in 1-2 weeks -Please use hydrocodone sparingly for pain, do not drive or operate heavy machinery or drink while taking medication -Your thyroid function is low, your TSH was 0.02 please have your primary care provider recheck your thyroid function in 2 to 4 weeks -Your iron levels were low please consider iron supplementation, have your primary care provider check your iron levels in 2 to 4 weeks -For your COVID-19 positivity continue to self isolate, socially distance, facemask, hand wash -Please do not breast-feed while taking antibiotics or while taking narcotics, as there is a risk of complications in your Physical Exam Const: COMMON NORMALS: no acute distress and patient oriented x3 Resp: COMMON NORMALS: normal respiratory effort, No retractions, No use of accessory muscles and clear to auscultation bilaterally AUSCULTATION: clear to auscultation bilaterally Cardio: COMMON NORMALS: regular rate, regular rhythm, S1 normal heart sound present and S2 normal heart sound present RATE: regular rate RHYTHM: regular rhythm HEART SOUNDS: S1 normal heart sound present and S2 normal heart sound present GI: COMMON NORMALS: Normal to inspection, nondistended, normoactive bowel sounds present and non-tender Extremity: COMMON NORMALS: no pedal edema Neuro: COMMON NORMALS: patient oriented x3 Psych: COMMON NORMALS: mental status grossly normal Urinary Catheter Management: Kaye Latex: Cath Placed During This Visit: yes, but has since been removed by the nurse Reason for Continuing Indwelling Catheter: Decision to DC Catheter Urinary Catheter Date of Insertion: 02/15/24 Urinary Catheter Time of Insertion: 03:30 Date Urinary Catheter Removed: 02/16/24 Time Urinary Catheter Discontinued: 04:00 Discharge Data Studies Completed and Pending Completed Studies During Hospitalization Category Date Time Status CT kidney stone [id number] Stat Cat Scan 02/13/24 11:02 Completed CTA chest [CT angio chest PE protcl 63512] Stat Cat Scan 02/15/24 01:15 Completed CXRP [XR chest 1V portable [id number]] Routine Exams 02/14/24 15:34 Completed CV. echo complete* [id number] Routine Ultrasound 02/15/24 02:48 Completed US renal BI* [id number] Routine Ultrasound 02/15/24 07:57 Completed Pending at discharge Category Date Time Status Blood Culture Stat Lab 02/13/24 10:19 Results Radiology Impressions Abdomen/Pelvis CT 02/13/24 11:02 IMPRESSION: 1. Mild circumferential urinary bladder wall thickening and perivesicular edema a subtle right urothelial thickening. An ascending urinary tract infection could produce this appearance. 2. Additional findings, as above. Chest X-Ray 02/14/24 15:34 IMPRESSION: 1. Left upper extremity PICC with the tip at the superior vena cava. 2. Right middle lobe and right lower lobe airspace disease suspicious for pneumonia. Recommend followup chest imaging to insure resolution of these findings. Chest CTA 02/15/24 01:15 IMPRESSION: 1. No central or segmental pulmonary emboli. Evaluation of the more distal branches is limited by motion artifact. 2. Bilateral pulmonary edema. Lower lobe atelectasis or other infiltrates. Small to moderate pleural effusions. 3. Question mild stranding noted in the right perinephric region, incompletely evaluated on this study. Correlate with urinalysis to exclude pyelonephritis. Renal Ultrasound 02/15/24 07:57 IMPRESSION: 1. Normal renal ultrasound. No hydronephrosis. 2. Kaye catheter in bladder. 3. Small RIGHT greater than LEFT pleural effusions. Laboratory Results WBC 8.85 10^3/uL (3.29-11.43) 02/17/24 04:24 RBC 3.93 10^6/uL (3.85-5.65) 02/17/24 04:24 Hgb 9.90 g/dL (11.27-16.99) L 02/17/24 04:24 Hct 31.7 % (36-47) L 02/17/24 04:24 MCV 80.7 fl (85-98) L 02/17/24 04:24 MCH 25.2 pg (27-33) L 02/17/24 04:24 MCHC 31.2 g/dL (30-55) 02/17/24 04:24 RDW 17.1 % (12.1-15.1) H 02/17/24 04:24 Plt Count 366 10^3/cmm (157-399) 02/17/24 04:24 MPV 9.9 fL (7.4-10.4) 02/17/24 04:24 Neut % (Auto) 47.2 % 02/17/24 04:24 Lymph % (Auto) 42.9 % 02/17/24 04:24 [place] % (Auto) 8.5 % 02/17/24 04:24 Eos % (Auto) 0.8 % 02/17/24 04:24 Baso % (Auto) 0.3 % 02/17/24 04:24 Neut # (Auto) 4.17 10^3/uL (1.8-7.7) 02/17/24 04:24 Lymph # (Auto) 3.8 10^3/uL (0.8-4.8) 02/17/24 04:24 [place] # (Auto) 0.8 10^3/uL (0.2-0.9) 02/17/24 04:24 Eos # (Auto) 0.1 10^3/uL (0.0-0.8) 02/17/24 04:24 Baso # (Auto) 0.0 10^3/uL (0.0-0.1) 02/17/24 04:24 Nucleated RBC % (auto) 0 % 02/17/24 04:24 Nucleated RBCs # 0.0 /100WBC 02/17/24 04:24 Sodium 145 mmol/L (136-145) 02/17/24 04:24 Potassium 3.3 mmol/L (3.5-5.1) L 02/17/24 04:24 Chloride 104 mmol/L (98-107) 02/17/24 04:24 Carbon Dioxide 30 mmol/L (22-29) H 02/17/24 04:24 Anion Gap 14.3 (5-19) 02/17/24 04:24 BUN 17 mg/dL (6-20) 02/17/24 04:24 Creatinine 0.5 mg/dL (0.5-0.9) 02/17/24 04:24 GFR Calculation 155.7 mL/min (90-130) H 02/17/24 04:24 Glucose 87 mg/dL (65-115) 02/17/24 04:24 Estimat Average Glucose 97 02/13/24 10:23 Hemoglobin A1c 5.0 % (4.0-6.0) 02/13/24 10:23 Calculated Osmolality 301 mOsm/kg (285-295) H 02/17/24 04:24 Lactic Acid 0.9 mmol/L (0.5-2.2) 02/14/24 16:25 Lactate 1.1 mmol/L (0.5-2.2) 02/15/24 00:27 Calcium 8.5 mg/dL (8.5-10.5) 02/17/24 04:24 Iron 10 ug/dL (37-145) L 02/15/24 06:21 TIBC 227 mcg/dl 02/15/24 06:21 % Saturation 4.4 % (20-50) L 02/15/24 06:21 Unsat Iron Binding 217 ug/dL (112-347) 02/15/24 06:21 Ferritin 102 ng/mL (15-150) 02/15/24 06:21 Total Bilirubin 0.2 mg/dL (0.15-1.2) 02/17/24 04:24 Direct Bilirubin 0.20 mg/dL (0.00-0.30) 02/14/24 02:51 AST 17 U/L (0-32) 02/17/24 04:24 ALT 20 U/L (0-33) 02/17/24 04:24 Alkaline Phosphatase 76 U/L (35-105) 02/17/24 04:24 Troponin T Baseline 10 ng/L (0-10) 02/15/24 00:27 Troponin T 120 Minute 6.00 ng/L (0-10) 02/15/24 02:28 Delta Troponin T -4.00 ABS# (0-10) L 02/15/24 02:28 Troponin T Hi Sens 6Hr 6.00 ng/L (0-10) 02/15/24 06:21 Troponin T Hi Sens 6Hr Delta -4.00 ng/L (0-12) L 02/15/24 06:21 C-Reactive Protein 68.9 mg/L (0.0-4.9) H 02/17/24 04:24 NT-Pro-B Natriuret Pep 3091 pg/mL (0-125) H 02/15/24 06:21 Total Protein 6.4 g/dL (6.6-8.7) L 02/17/24 04:24 Albumin 3.5 g/dL (3.5-5.2) 02/17/24 04:24 Globulin 2.9 g/dL (1.3-4.6) 02/17/24 04:24 Procalcitonin 0.38 ng/mL (0-0.5) 02/17/24 04:24 TSH 0.02 uIU/mL (0.27-4.20) L 02/13/24 10:23 Free T4 2.05 ng/dL (0.82-1.77) H 02/14/24 02:51 Free T3 2.9 PG/ML (2.0-4.4) 02/14/24 02:51 HCG, Qual Negative (Negative) 02/13/24 10:23 Urine Color Yellow (Yellow) 02/13/24 12:25 Urine Appearance Cloudy (CLEAR) A 02/13/24 12:25 Urine pH 6.0 (5-7) 02/13/24 12:25 Ur Specific [place] 1.014 (1.005-1.030) 02/13/24 12: Urine Protein 2+ (Negative) A 02/13/24 12: Urine Glucose (UA) Negative (Normal) 02/13/24 12: Urine Ketones Trace (Negative) 02/13/24 12: Urine Blood 1+ (Negative) A 02/13/24 12: Urine Nitrate Positive (Negative) A 02/13/24 12:25 Urine Bilirubin Negative (Negative) 02/13/24 12:25 Urine Urobilinogen 1.0 mg/dL (Negative) 02/13/24 12:25 Ur Leukocyte Esterase 3+ (Negative) A 02/13/24 12:25 Urine RBC 0-2 /hpf (0-2) 02/13/24 12:25 Urine WBC >100 /hpf (0-5) H 02/13/24 12:25 Ur Squamous Epith Cells 0-5 /hpf (0-5) 02/13/24 12: Amorphous Sediment Not Reportable 02/13/24 12:25 Urine Bacteria 4+ /hpf (NONE) H 02/13/24 12:25 Hyaline Casts 2.87 /lpf 02/13/24 12:25 Nasal MRSA (PCR) Not detected (Not Detecte) 02/14/24 23:35 Adenovirus (PCR) Not detected (NOT DETECT) 02/15/24 09:07 C. pneumoniae DNA (PCR) Not detected (NOT DETECT) 02/15/24 09:07 Coronavirus 229E (PCR) Not detected (NOT DETECT) 02/15/24 09:07 Human Metapneumovir PCR Not detected (NOT DETECT) 02/15/24 09:07 Influenza A (H1) PCR Not detected (NOT DETECT) 02/15/24 09:07 Influ A (H1/09) PCR Not detected (NOT DETECT) 02/15/24 09:07 Influenza A (H3) PCR Not detected (NOT DETECT) 02/15/24 09:07 Influenza Type A (PCR) Not detected (NOT DETECT) 02/15/24 09:07 Influenza Type B (PCR) Not detected (NOT DETECT) 02/15/24 09:07 M. pneumoniae (PCR) Not detected (NOT DETECT) 02/15/24 09:07 Parainfluenza 1 (PCR) Not detected (NOT DETECT) 02/15/24 09:07 Parainfluenza 2 (PCR) Not detected (NOT DETECT) 02/15/24 09:07 Parainfluenza 3 (PCR) Not detected (NOT DETECT) 02/15/24 09:07 Parainfluenza 4 (PCR) Not detected (NOT DETECT) 02/15/24 09:07 RSV Type A (PCR) Not detected (NOT DETECT) 02/15/24 09:07 RSV Type B (PCR) Not detected (NOT DETECT) 02/15/24 09:07 Entero/Rhino (PCR) Not detected (NOT DETECT) 02/15/24 09:07 SARS-CoV-2 (PCR) Detected (NOT DETECT) A 02/15/24 09:07 Vitals Last Vital Signs Temp 98.3 F 02/17/24 07:32 Pulse 87 02/17/24 07:32 Resp 17 02/17/24 07:32 BP 119/73 02/17/24 07:32 Pulse Ox 98 02/17/24 07:32 O2 Del Method Room Air 02/17/24 07:32 O2 Flow Rate 2 02/16/24 08:25 Discharge Plan Discharge Patient Disposition: Home Condition: Stable Prescriptions: New hydrocodone-acetaminophen 5-325 mg Tablet 1 tab PO Q12H PRN (Reason: Moderate Pain) 7 Days Qty: 14 0RF ertapenem 1 gram recon soln 1 g IV DAILY 7 Days Qty: 7 0RF Lactobacillus acidoph-L.bulgar 1 million cell Tablet 1 tab PO BID 7 Days Qty: 14 0RF fluconazole 150 mg tablet 150 mg PO DAILY Qty: 1 0RF Rx Instructions: administer on day 1 of therapy No Action No Known Home Medications Discharge Orders: Discharge Order (Routine); Ordered 02/17/24 Ordered By: Jhony Schmidt Referrals: [facility] [Outside] - 02/20/24 2:30 pm René Almendarez FNP-C [Primary Care Provider] - 02/27/24 10:20 am Discharge Diet: Regular Discharge Activity: Resume usual activity Patient Instructions: Opioid Safety Activity Restrictions/Additional Instructions: - Continue to hydrate well -Please take ertapenem 1 g IV every 24 hours for 7 days, stop thereafter, remove PICC line thereafter -For your ESBL E. coli infection please follow-up with primary care provider for referral to infectious disease for consideration of chronic suppressive antibiotics or postcoital antibiotics -If you have recurrent fevers, flank pain please go to the emergency room -Please see your primary care provider in 1-2 weeks -Please use hydrocodone sparingly for pain, do not drive or operate heavy machinery or drink while taking medication -Your thyroid function is low, your TSH was 0.02 please have your primary care provider recheck your thyroid function in 2 to 4 weeks -Your iron levels were low please consider iron supplementation, have your primary care provider check your iron levels in 2 to 4 weeks -For your COVID-19 positivity continue to self isolate, socially distance, facemask, hand wash -Please do not breast-feed while taking antibiotics or while taking narcotics, as there is a risk of complications in your -Please monitor for hypercoagulable event such as DVTs or pulmonary embolism, continue to ambulate. If you develop calf pain or calf swelling or sudden onset chest pain or shortness of breath or bloody cough please go to emergency room Discharge Attestations Time Spent in Discharge Care*: greater than 30 min Quality Metrics Clinical Quality Measures [ No reported AMI, CVA or VTE this stay] Coding Level of Care Code 19840 Total time (in minutes) for Discharge: 45 Diagnoses Pyelonephritis of right kidney N12 Sepsis A41.9 Septic shock A41.9; R65.21 Acute hypoxic respiratory failure J96.01 Infection due to ESBL-producing Escherichia coli A49.8; Z16.12
[2024-02-17 11:19] VITALS: BP 119/73; PULSE 87; RESP 17; TEMP 36.8; O2SAT 98
[2024-02-17 11:30] VITALS: BP 115/73; PULSE 98; RESP 16; TEMP 36.8; O2SAT 97
[2024-02-17] MEDS: potassium chloride ER 20 mEq Tablet PO (11:50)
--- NOTE | 2024-02-17 12:53 | PC.NURSE ---
Discharge Note Patient discharged to home via private vehicle accompanied by mom, dad, sister, and brother. Discharge instructions reviewed with patient and/or pharmacy sales representative. Mobile pharmacy medications and/or prescriptions provided. Belongings/home medications returned.
== END 2024-02-17 12:53 | disposition home or self-care (01) | DRG 871 ==
LOC: ER 10:43 → MEDSURG 14:21 → ICU 02-14 02:01 → MEDSURG 02-16 14:11
PROVIDERS: Internal Medicine; Physician Assistant; Admitting Provider Family Medicine; Emergency Provider Family Medicine; PCP Nurse Practitioner; Visit Provider Family Medicine
DX: A41.51 Sepsis due to Escherichia coli [E. coli] (principal); J96.01 Acute respiratory failure with hypoxia; R65.21 Severe sepsis with septic shock; U07.1 COVID-19; N10 Acute pyelonephritis; E87.70 Fluid overload, unspecified; D50.9 Iron deficiency anemia, unspecified
CPT/HCPCS: 36415; 36573; 36592; 51702; 71045; 71275; 74176; 76770; 80048; 80053; 80076; 81001; 82728; 83036; 83540; 83550; 83605; 83880; 84145; 84439; 84443; 84481; 84484; 84703; 85014; 85018; 85025; 86140; 87040; 87077; 87086; 87186; 87486; 87581; 87633; 93005; 93306; 96361; 96372; 96374; 96375; 96376; 99285; C1751; J0456; J0696; J1650; J1885; J1940; J2020; J2060; J2185; J2270; J2405; J2470; J2543; J2919; J7030; J7040; J7050; J7120; P9046

== ENCOUNTER 2024-02-20 14:24 | Oncology outpatient (recurring) (ONCR) | payer OTHER, SELFPAY ==
--- OUTSIDE RECORDS SUMMARY | 2024-02-18 09:00 | XMS_ITS ---
Author Name Unknown Organization [facility] Billing Info Address [address] [place] [address] Care Team Providers Care Public Relations Supervisor Name Role Phone BGFREDON Unavailable [phone] Jayla Ronquillo Unavailable Unavailable REASON FOR VISIT DR. RONQUILLO / GROWTH/BPP/DOPPLER..SV Problems Problem Type SNOMED Code ICD Code Onset Dates Problem Status W/U Status Risk Notes Problem 02256528 35 weeks gestation of (Z3A.35) Active confirmed Encounters Encounter Location Date Provider Diagnosis [id number] [facility] [place], [place] [id number] 11/08/2023 YARY PEDERSON IUGR, O36. 5990 ; History of miscarriage, currently O09.299 ; Personal history of hydronephrosis Z87.448 ; 35 weeks gestation of Z3A.35 ; Obesity (BMI 30-39.9) E66.9 and Obesity in O99.210 Assessments Encounter Date Diagnosis (ICD Code) Assessment Notes Treatment Notes Treatment Clinical Notes 11/08/2023 IUGR, (ICD-10 - O36.5990) Today's scan:__ Normal growth at 33w 5d (BC = 12/22/2023) with 2288 g/46% and AC at 68%__ Normal amniotic fluid with MVP of 5 cm and TERRELL of 14.3 cm . __ BPP was reassuring 12/28. __ Placenta was anterior. __ Presentation was CEPHALIC__ Reassuring umbilical artery Doppler with S/D ratio of 2.37 ( 36%) __ Right dacryocystocele 4 x 4 mm ( previous 5 x 5 x 4 mm )__ Maternal hydronephrosis No malformations or soft markers for aneuploidy visualized today. I discussed the findings including the limitations of obstetric sonography. All questions answered. Please see ECW for complete history and physical. All recent labs and ultrasounds reviewed. Patient denies ctx/lof/vb. Good FM. Patient's only complaint is occasional right-sided back discomfort. Appears to be related to the patient's hydronephrosis. She states that the discomfort is a dull pain that comes and goes. Of note, patient's dating is based on her last menstrual period, which had been consistent with her 11 week ultrasound. However, the patient reports that her menstrual periods were irregular and that she was on hormonal control when she got . Aneuploidy screening: low risk cell free DNA Problem list:1. Normal anatomic survey2. Incorrect dating vs IUGR, resolved3. Maternal hydronephrosis 4. dacrocystocele Counseling:BECKY LEIGH presented today for a follow up detailed anatomic survey which was reassuring and UA Doppler. Normal growth by early u/s. dacrocystocele noted. Incorrect dating Explained to the patient that her original dating might not have taken into account her irregular menstrual periods. For that reason, establish her due date of 12/22/2023 based on her 11 week ultrasound, which is consistent with today's growth ultrasound . Maternal hydronephrosis Explained to the patient that hydronephrosis is very common in and majority of the time does not cause any complications. Monitor for kidney function, obstruction and UTI. Normal creatinine. DacryocystocelesUsually can resolve after with massage. Occ associated with infection. Plan for 2 week follow up after , sooner prn. If respiratory distress, could be sign of nasal occlusion which would require urgent treatment/transfer. Ok for delivery with primary ob. Smaller in size today. Will likely resolve with warm compress after . Recommendations:- routine assessment-screen for UTI, serum creatinine q trimester, repeat renal u/s prn Thank you for the opportunity to see your patient. Please call with any questions or concerns. 11/08/2023 History of miscarriage, currently (ICD-10 - O09.299) 11/08/2023 Personal history of hydronephrosis (ICD-10 - Z87.448) 11/08/2023 35 weeks gestation of (ICD-10 - Z3A.35) 11/08/2023 Obesity (BMI 30-39.9) (ICD-10 - E66.9) 11/08/2023 Obesity in (ICD-10 - O99.210) Plan Of Treatment Treatment Notes Assessment Notes IUGR, Today's scan:__ Normal growth at 33w 5d (BC = 12/22/2023) with 2288 g/46% and AC at 68%__ Normal amniotic fluid with MVP of 5 cm and TERRELL of 14.3 cm . __ BPP was reassuring 12/28. __ Placenta was anterior. __ Presentation was CEPHALIC__ Reassuring umbilical artery Doppler with S/D ratio of 2.37 ( 36%) __ Right dacryocystocele 4 x 4 mm ( previous 5 x 5 x 4 mm )__ Maternal hydronephrosis No malformations or soft markers for aneuploidy visualized today. I discussed the findings including the limitations of obstetric sonography. All questions answered. Please see ECW for complete history and physical. All recent labs and ultrasounds reviewed. Patient denies ctx/lof/vb. Good FM. Patient's only complaint is occasional right-sided back discomfort. Appears to be related to the patient's hydronephrosis. She states that the discomfort is a dull pain that comes and goes. Of note, patient's dating is based on her last menstrual period, which had been consistent with her 11 week ultrasound. However, the patient reports that her menstrual periods were irregular and that she was on hormonal control when she got . Aneuploidy screening: low risk cell free DNA Problem list:1. Normal anatomic survey2. Incorrect dating vs IUGR, resolved3. Maternal hydronephrosis 4. dacrocystocele Counseling:BECKY LEIGH presented today for a follow up detailed anatomic survey which was reassuring and UA Doppler. Normal growth by early u/s. dacrocystocele noted. Incorrect dating Explained to the patient that her original dating might not have taken into account her irregular menstrual periods. For that reason, establish her due date of 12/22/2023 based on her 11 week ultrasound, which is consistent with today's growth ultrasound . Maternal hydronephrosis Explained to the patient that hydronephrosis is very common in and majority of the time does not cause any complications. Monitor for kidney function, obstruction and UTI. Normal creatinine. DacryocystocelesUsually can resolve after with massage. Occ associated with infection. Plan for 2 week follow up after , sooner prn. If respiratory distress, could be sign of nasal occlusion which would require urgent treatment/transfer. Ok for delivery with primary ob. Smaller in size today. Will likely resolve with warm compress after . Recommendations:- routine assessment-screen for UTI, serum creatinine q trimester, repeat renal u/s prn Thank you for the opportunity to see your patient. Please call with any questions or concerns. Pending Test Test Name Order Date (03739) BIOPHYSICAL PROFILE; W/O N ON-STRESS TESTING (43814) 11/08/2023 DOPPLER VELOCIMETRY, ; UMBILICAL AR JACQUES (70109) 11/08/2023 US- PREG F/U greater than 14 WEEKS SINGL E (86609) 11/08/2023 Progress Notes * Nishant LEIGHguilherme JacobseDOB:03/2001 (23 yo F)Acc No.[id number]:11/08/2023 PROGRESS NOTE Patient:?Becky LEIGH de Provider:?YARY PEDERSON MD :2000???Age:23 Y???Sex:Female D ate:11/08/2023 ?N#:[id number] Address:[address] [place] [address], [facility] Subjective: * Chief Complaints: * ???DR. RONQUILLO / GROWTH/BPP/D RENANPLER..SV * Medical History:?? 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 Spontaneous?1 ?Living?1 ??? # 1:?2018 Spontaneous unknown of weeks.? # 2:?10/22/2021, @39 Weeks, Male, weight: 7lbs 10z, No complications.? * Surgical History:? * Hospitalization/Major Diagno stic Procedure:? * Medications:? Objective: * Vitals:? Assessment: * Assessment: 1.?IUGR, - O36.599 0 (Primary)?2.?History of miscarriage, currently - O09.299?3.?Personal history of hydronephrosis - Z87.448?4.?35 weeks gestation of - Z3A.35?5.?Obesity (BMI 30-39.9) - E66.9?6.?Obesity in - O99.210? Plan: * Treatment: * Procedure Codes:?92585 11062 14147 [id number] UMBILICAL ARTERY ECHO * Care Plan Details* * Sign off status: Completed true * Provider:?YARY PEDERSON MD Date:?11/07 Generated for Gianluca poole/Fe/eTransmitting on:?02/18/2024 09:00 AM CDT
--- OUTSIDE RECORDS SUMMARY | 2024-02-18 09:00 | XMS_ITS ---
Author Name Unknown Organization [facility] Billing Info Address [address] [place] [address] Care Team Providers Care Figurine Maker Name Role Phone YARY PEDERSON Unavailable [phone] Jayla Ronquillo Unavailable REASON FOR VISIT DR. RONQUILLO / GROWTH/BPP/DOPPLER..SV Encounters Encounter Location Date Provider Diagnosis [id number] [facility] [address] [place], [place] [id number] 11/08/2023 YARY PEDERSON Plan Of Treatment No Information Progress Notes * Eileen LEIGHeDOB:03/2001 (23 yo F)Acc No.[id number]:11/08/2023 PROGRESS NOTE Patient:?KOLBY Eileen carter Provider:?YARY PEDERSON MD :2000???Age:23 Y???Sex:Female D ate:11/08/2023 ?N#:[id number] Address:[address] , [place], [place] Subjective: * Chief Complaints: * Active Problem List O09.42 High risk multigravi da in second trimester Modified On:09/07/2023W/U Status:confirmed O09.299 History of miscarria ge, currently Modified On:09/07/2023 Status:confirmed O36.5920 Poor growth af fecting management of mother in second trimester, single or unspecified fetus Modified On:09/07/2023 Status:confirmed Z3A.25 25 weeks gestation o f Modified On:09/07/2023 Status:confirmed O36.5990 IUGR, Modified On:09/28/2023 Status:confirmed Z87.448 Personal history of hydronephrosis Modified On:09/28/2023 Status:confirmed Z3A.33 33 weeks gestation o f Modified On:11/07/2023 Status:confirmed E66.9 Obesity (BMI 30-39.9 ) Modified On:11/08/2023 Status:confirmed O99.210 Obesity in Modified On:11/08/2023 Status:confirmed Z3A.35 35 weeks gestation o f Modified On:11/08/2023 Status:confirmed * Medical History:?? Objective: * Vitals:? Assessment: Plan: * Treatment: * Care Plan Details* * This progress note has not b een verified nor is it considered complete until locked and signed by the provider. Sign off status: Pending * Provider:?YARY PEDERSON MD Date:?11/07 Generated for Gianluca poole/Fe/Misaelitting on:?02/18/2024 09:00 AM CDT
--- OUTSIDE RECORDS SUMMARY | 2024-02-18 09:01 | XMS_ITS | Patient Health Record ---
Author Name Unknown Organization [facility] Billing Info Address [address] [place] [address] Care Team Providers Care Oil And Gas Drafter Name Role Phone YARY JOHNSTON Unavailable [phone] Jayla Ronquillo Unavailable Unavailable WILLIAM PERERA Unavailable [phone] Allergies No Known Allergies Reason For Referral Reason IUGR BC: 12/16/23 Referring Provider First Name Jayla Referring Provider Last Name Yg Referred Organization [id number] [facility] [address] Referred Provider YARY JOHNSTON Referred Address [address],[place], [place],[id number], Referral Priority Routine Medications Medication SIG (Take, Route, Fr equency, Duration) Notes Start Date End Date Status Vitamins Ac tive Famotidine 20 MG 1 tablet at bedtime as needed Orally Once a day 09/07/2023 Active Social History Tobacco Status: Question Answer Notes Patient is a non tobacco user Problems Problem Type SNOMED Code ICD Code Onset Dates Problem Status W/U Status Risk Notes Problem 25957153 25 weeks gestati on of (Z3A.25) Active confirmed Problem 69541829 33 weeks gestati on of (Z3A.33) Active confirmed Problem 73973632 35 weeks gestati on of (Z3A.35) Active confirmed Problem 921874868 Obesity (BMI 30-39.9) (E66.9) Active confirmed Problem 115870851 History of miscarriage, currently (O09.299) Active confirmed Problem 319145790 Poor growt h affecting management of mother in second trimester, single or unspecified fetus (O36.5920) Active confirmed Problem 45706721 High risk multigravida in second trimester (O09.42) Active confirmed Problem 72749418 IUGR, (O36.5990) Active confirmed Problem 574152510 Obesity in (O99.210) Active confirmed Problem 510803609 Personal history of hydronephrosis (Z87.448) Active confirmed Vital Signs Heart Rate 87 /min 11/08/2023 Temperature 98.3 degrees Fahrenheit 11/08/2023 Respiratory Rate 16 /min 11/08/2023 Blood pressure diastolic 63 mm Hg 11/08/2023 Height 60 in 11/08/2023 Blood pressure systolic 105 mm Hg 11/08/2023 Weight 156.0 lbs 11/08/2023 BMI 30.46 kg/m2 11/08/2023 Encounters Encounter Location Date Provider Diagnosis [id number] [facility] [address] [place], [place] [id number] 09/28/2023 YARY JOHNSTON IUGR, O36.5990 ; History of miscarriage, currently O09.299 ; Personal history of hydronephrosis Z87.448 and 27 weeks gestation of Z3A.27 [id number] [facility] [address] [place], [place] [id number] 11/08/2023 WILLIAM PERERA IUGR, O36.5990 ; History of miscarriage, currently O09.299 ; Personal history of hydronephrosis Z87.448 ; 33 weeks gestation of Z3A.33 ; Obesity (BMI 30-39.9) E66.9 and Obesity in O99.210 [id number] [facility] [address] [place], [place] [id number] 11/08/2023 YARY JOHNSTON IUGR, O36.5990 ; History of miscarriage, currently O09.299 ; Personal history of hydronephrosis Z87.448 ; 35 weeks gestation of Z3A.35 ; Obesity (BMI 30-39.9) E66.9 and Obesity in O99.210 [id number] [facility] [address] [place], [place] [id number] 09/07/2023 YARY JOHNSTON Poor growth affecting management of mother in second trimester, single or unspecified fetus O36.5920 ; High risk multigravida in second trimester O09.42 ; History of miscarriage, currently O09.299 and 25 weeks gestation of Z3A.25 Assessments Encounter Date Diagnosis (ICD Code) Assessment Notes Treatment Notes Treatment Clinical Notes 09/07/2023 Poor growth affecting management of mother in second trimester, single or unspecified fetus (ICD-10 - O36.5920) Today's scan: -- Normal detailed anatomic survey at 24w 6d (BC = 12/22/2023) with an estimated weight of 721 g (32%) -- Normal amniotic fluid. -- Placenta was anterior. -- Pending views: ALEXEI/ACI due to position and movements -- Maternal left ovary demonstrates a regressing corpus luteum 10 x 10 mm -- Reassuring umbilical artery Doppler with S/D ratio of 3.66 ( 63%) -- Maternal right hydronephrosis identified No malformations or soft markers for aneuploidy [...] screening: low risk cell free DNA Problem list: 1. Normal anatomic survey 2. Incorrect dating vs IUGR 3. Maternal hydronephrosis Counseling: BECKY LEIGH presented today for a detailed anatomic survey which was reassuring and UA Doppler. Incorrect dating Explained to the patient that her original dating might not have taken into account her irregular menstrual periods. For that reason, establish her due date of 12/22/2023 based on her 11 week ultrasound, which is consistent with today's growth ultrasound placing the patient's fetus at the 32nd percentile. Maternal hydronephrosis Explained to the patient that hydronephrosis is very common in and majority of the time does not cause any complications. Monitor for kidney function, obstruction and UTI. Recommendations: -Repeat growth ultrasound in 3 weeks with UA Doppler -screen for UTI, serum creatinine q trimester, repeat renal u/s prn Thank you for the opportunity to see your patient. Please call with any questions or concerns. Greater than 50% of this 20 minute visit was spent counseling face to face regarding risk factors and plan of care. 09/07/2023 High risk multigravida in second trimester (ICD-10 - O09.42) 09/28/2023 History of miscarriage, currently (ICD-10 - O09.299) High-Risk : Care Instructions material was published 09/28/2023 IUGR, (ICD-10 - O36.5990) Today's scan:__ Normal growth at 27w 6d (BC = 12/22/2023) with 1064 g/22% and AC at 38%__ Normal amniotic fluid with MVP of 5.5 cm and TERRELL of 18.1 cm . __ Placenta was anterior. __ Presentation was CEPHALIC.__ Pending views COMPLETED today: ALEXEI, ACI.__ Reassuring umbilical artery Doppler with S/D ratio of 3.96 ( 87%) __ Right dacryocystocele 5 x 5 x 4 mm No malformations or soft markers for aneuploidy [...] list:1. Normal anatomic survey2. Incorrect dating vs IUGR 3. Maternal hydronephrosis 4. dacrocystocele Counseling:BECKY LEIGH presented [...] treatment/transfer. Ok for delivery with primary ob. Recommendations:-Repeat growth ultrasound in 4-6 weeks with UA Doppler-screen for UTI, serum creatinine q trimester, repeat renal u/s prn Thank you for the opportunity to see your patient. Please call with any questions or concerns. Greater than 50% of this 15 minute visit was spent counseling face to face regarding risk factors and plan of care. 11/08/2023 History of miscarriage, currently (ICD-10 - O09.299) High-Risk : Care Instructions material was published 11/08/2023 IUGR, (ICD-10 - O36.5990) Pt feeling well, denies complaints Denies lof/ctx/vb. Positive FM Maternal right kidney [id number]. Pt denies any back pain or CVA tenderness Growth scan today, overall growth 46%, AC 68%, BPP 8, dopplers WNL. dacrocystocele stable. Please see Dr. Johnston final interpretation of ultrasound. No further MFM follow up at this time, may refer back as needed. Thank you for the opportunity to see this patient. Discussed FKC, and the importance of counting movements daily. Patient was instructed to count movements at least once a day, and to ensure that there are at least 10 movements in the time span of 2 hours. If at any time movements are less than 10 in 2 hours, patient understands that needs to call the office immediately, or if after regular business hours, proceed to the nearest emergency department for evaluation. Questions encouraged and answered, patient verbalized understanding. 11/08/2023 History of miscarriage, currently (ICD-10 - O09.299) 11/08/2023 IUGR, (ICD-10 - O36.5990) Today's scan:__ [...] call with any questions or concerns. 11/08/2023 Personal history of hydronephrosis (ICD-10 - Z87.448) 11/08/2023 Personal history of hydronephrosis (ICD-10 - Z87.448) 09/28/2023 Personal history of hydronephrosis (ICD-10 - Z87.448) 09/07/2023 History of miscarriage, currently (ICD-10 - O09.299) 09/07/2023 25 weeks gestation of (ICD-10 - Z3A.25) Weeks 22 to 26 of Your : Care Instructions material was printed 09/28/2023 27 weeks gestation of (ICD-10 - Z3A.27) 11/08/2023 33 weeks gestation of (ICD-10 - Z3A.33) 11/08/2023 35 weeks gestation of (ICD-10 - Z3A.35) 11/08/2023 Obesity (BMI 30-39.9) (ICD-10 - E66.9) 11/08/2023 Obesity (BMI 30-39.9) (ICD-10 - E66.9) 11/08/2023 Obesity in (ICD-10 - O99.210) 11/08/2023 Obesity in (ICD-10 - O99.210) Plan Of Treatment Pending Test Test Name Order Date (84039) BIOPHYSICAL PROFILE; W/O N ON-STRESS TESTING (81460) 11/08/2023 DOPPLER VELOCIMETRY, ; UMBILICAL AR JACQUES (12191) 11/08/2023 DOPPLER VELOCIMETRY, ; UMBILICAL AR JACQUES (22098) 09/07/2023 DOPPLER VELOCIMETRY, ; UMBILICAL AR JACQUES (53431) 09/28/2023 US- PREG greater than 14 WEEKS SINGLE (7 6811) 09/07/2023 US- PREG F/U greater than 14 WEEKS SINGL E (77362) 09/28/2023 US- PREG F/U greater than 14 WEEKS SINGL E (71891) 11/08/2023 Insurance Providers Payer Name Payer Address Payer Phone Subscriber Number Group Number Insured Name Patient Relationship to Insured Coverage Start Date Coverage End Date [facility] [address] [place] [id number] Becky Leigh Self - patient is the insured 4 3 Medical (General) History Medical History History ICD Code A POSITIVE HX OF MISCARRIAGE [id number] LOW RISK (FEMALE) CARRIER SCREEN NEGATIVE AFP NEGATIVE 1 HOUR GTT 89 Hospitalization History Reason Date(Month/Year) SEEN AT HOSPITAL [facility] DUE TO CRAMPING 0 11/02/2023
--- OUTSIDE RECORDS SUMMARY | 2024-02-18 09:01 | XMS_ITS ---
Author Name Unknown Organization [facility] Billing Info Address [address] [place] [id number] Care Team Providers Care School Lunch Manager Name Role Phone BG YARY Unavailable [phone] Jayla Ronquillo Unavailable Unavailable WILLIAM PERERA Unavailable [phone] Allergies No Known Allergies REASON FOR VISIT DR. RONQUILLO / GROWTH/BPP/DOPPLER..SV Medications Medication SIG (Take, Route, Fr equency, Duration) Notes Start Date End Date Status Vitamins Ac tive Famotidine 20 MG 1 tablet at bedtime as needed Orally Once a day 09/07/2023 Active Social History Tobacco Status: Question Answer Notes Patient is a non tobacco user Problems Problem Type SNOMED Code ICD Code Onset Dates Problem Status W/U Status Risk Notes Problem 78047560 33 weeks gestation of (Z3A.33) Active confirmed Problem 360693784 Obesity (BMI 30-39.9) (E66.9) Active confirmed Problem 493929084 Obesity in (O99.210) Active confirmed Vital Signs Height 60 in 11/08/2023 Weight 156.0 lbs 11/08/2023 BMI 30.46 kg/m2 11/08/2023 Blood pressure systolic 105 mm Hg 11/08/19 24 Blood pressure diastolic 63 mm Hg 024 Temperature 98.3 degrees Fahrenheit 11/08/19 24 Heart Rate 87 /min 11/08/2023 Respiratory Rate 16 /min 11/08/2023 Encounters Encounter Location Date Provider Diagnosis [id number] [facility] [id number] [place], [place] [id number] 11/08/2023 WILLIAM PERERA IUGR, O36.5990 ; History of miscarriage, currently O09.299 ; Personal history of hydronephrosis Z87.448 ; 33 weeks gestation of Z3A.33 ; Obesity (BMI 30-39.9) E66.9 and Obesity in O99.210 Assessments Encounter Date Diagnosis (ICD Code) Assessment Notes Treat ment Notes Treatment Clinical Notes 11/08/2023 IUGR, (ICD-10 - O36.5990) Pt feeling well, denies complaints Denies lof/ctx/vb. Positive FM Maternal right kidney [id number]. Pt denies any back pain or CVA tenderness Growth scan today, overall growth 46%, AC 68%, BPP 8/8, dopplers WNL. dacrocystocele stable. Please see Dr. [...] : Care Instructions material was published 11/08/2023 Personal history of hydronephrosis (ICD-10 - Z87.448) 11/08/2023 33 weeks gestation of (ICD-10 - Z3A.33) 11/08/2023 Obesity (BMI 30-39.9) (ICD-10 - E66.9) 11/08/2023 Obesity in (ICD-10 - O99.210) Plan Of Treatment Treatment Notes Assessment Notes IUGR, Pt feeling well, denies complaints Denies lof/ctx/vb. Positive FM Maternal right kidney [id number]. Pt denies any back pain or CVA tenderness Growth scan today, overall growth 46%, AC 68%, BPP 8/8, dopplers WNL. dacrocystocele stable. Please see Dr. [...] Questions encouraged and answered, patient verbalized understanding. History of miscarriage, curr ently High-Risk : Care Instructions material was published Next Appt Details Follow Up: no f/u, Reason: Progress Notes * Eileen LEIGHeDOB:03/2001 (23 yo F)Acc No.[id number]:11/08/2023 PROGRESS NOTE Patient:?Nishant LEIGHguilherme carter Provider:?WILLIAM PERERA DNP :2000???Age:23 Y???Sex:Female D ate:11/08/2023 ?N#:[id number] Address:[address] [place], [place] [id number] Subjective: * Chief Complaints: * ???DR. RONQUILLO / GROWTH/BPP/D OPPLER..SV * HPI: ???Patient History:? 23 Y/O SAB1, PATIENT IS 33 WEEKS AND 5 DAYS GESTATION. NO ABN DISCHARGE, NO VAGINAL BLEEDING, NO EDEMA, NO LOF, +FM. BC: 12/22/2023 MM PER PATIENT PRIMARY OB NEEDS KIDNEYS CHECKED. ???First Point of Contact Screening:?Do any of the following apply to you?New rash or open sores?No ?Fever and/or chills in the past 7 days?No ?Cough?No ?Muscle or body aches (other than from an injury)?No ?Sore throat?No ?In the past 3 weeks, have you or a close contact traveled outside the [place] and you are now ill??No ?OFFICE USE (If universal masking is not in place, provide patients age 2 years and older with a facemask to wear over their mouth and nose while in the practice.):?Patient answered no to all questions OR only answered yes to question 1 * ROS:?General ROS:?Constitutional:?Denies:, fever, loss of appetite.?Genital/Urinary:?Denies:, vaginal bleeding , vaginal discharge, vaginal itching.? * Medical History:?? 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 Spontaneous?1 ?Living?1 ??? # 1:?2019 Spontaneous unknown of weeks.? # 2:?10/22/2021, @39 Weeks, Male, weight: 7lbs 10z, No complications.? * Surgical History:?Denies Pas t Surgical History * Hospitalization/Major Diagno stic Procedure:?SEEN AT [facility] DUE TO CRAMPING 11/02/2023 * Family History:?No Family Hi story documented..? * Social History:?Alcohol Use?Patient?does not use alcohol ???Tobacco Status?Patient is?a non tobacco user ???Marital Status: . ???Lives with: spouse, child. 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 * Medications:?TakingFamotidin e 20 MG Tablet 1 tablet at bedtime as needed Orally Once a day Vitamins Medication List reviewed and reconciled with the patientTaking Famotidine 20 MG Tablet 1 tablet at bedtime as needed Orally Once a day Taking Vitamins Medication List reviewed and reconciled with the patient * Allergies:?N.K.A.no[Allergie s Verified] Objective: * Vitals:?Ht: 60 in, Ht-cm: 15 2.4 cm, Wt: 156.0 lbs, Wt-k.76 kg, BMI:30.46, Weight Change: 5.5 lbs, Body Surface Area: 1.73, BP:105/63, Temp:98.3F, HR:87, Respiratory Rate:16. * Examination: ???MATERNAL MEDICINE: ?Constitutional:? well nourished, well groomed, overweight.?Gastrointestinal (Abdomen):? nondistended, soft, nontender, no hepatosplenomegaly.?Extremities:? present.?Skin:? no rashes, no eruptions.?Psychiatric:? affect normal.? Assessment: * Assessment: 1.?IUGR, - O36.599 0 (Primary)?2.?History of miscarriage, currently - O09.299?3.?Personal history of hydronephrosis - Z87.448?4.?33 weeks gestation of - Z3A.33?5.?Obesity (BMI 30-39.9) - E66.9?6.?Obesity in - O99.210? Plan: * Treatment: 2.?History of miscarriage, c urrently ? Notes: High-Risk : Care Instructions material was published?? * Procedure Codes:? * Preventive Medicine:? ??Quality Measures:?Influenza Immunization ?Patient's?Immunization ordered or recommended (to be given at alternate location or alternate provider); vaccine not available at time of visit * Follow Up:?no f/u * Care Plan Details* * Sign off status: Completed true * Provider:?WILLIAM PERERA DNP Date:? 11/08/2023 Generated for Gianluca poole/Fe/Elyssa on:?02/18/2024 09:00 AM CDT History and Physical Notes * HPI (History of Present Illness) Category Sub-Category Detail Notes First Point of Contact Screening Do any of the following apply to you? New rash or open sores: No Fever and/or chills in the past 7 days: No Cough: No Muscle or body aches (other than from an injury): No Sore throat: No In the past 3 weeks, have yo u or a close contact traveled outside the [place] and you are now ill? : No OFFICE USE (If universal mas arturo is not in place, provide patients age 2 years and older with a facemask to wear over their mouth and nose while in the practice.):: Patient answered no to all questions OR only answered yes to question 1 Examination Category Sub-Category Detail Notes MATERNAL MEDICINE Constitutional: well nou rished, well groomed, overweight Gastrointestinal (Abdomen): nondistended , soft, nontender, no hepatosplenomegaly Extremities: present Skin: no rashes, no erupti ons Psychiatric: affect normal
[2024-02-18] MEDS: ertapenem 1,000 mg SDV 1000 MG IVP (09:25)
[2024-02-18 09:44] VITALS: BP 107/62; PULSE 87; RESP 18; TEMP 36.4; O2SAT 97; BMI 30.4
[2024-02-19] MEDS: ertapenem 1,000 mg SDV 1000 MG IVP (09:41)
[2024-02-19 10:04] VITALS: BP 104/58; PULSE 88; RESP 16; TEMP 36.3; O2SAT 98
[2024-02-20] MEDS: ertapenem 1,000 mg SDV 1000 MG IVP (14:50)
[2024-02-20 15:07] VITALS: BP 99/63; PULSE 96; RESP 16; TEMP 36.4; O2SAT 96
== END 2024-02-20 23:59 | disposition home or self-care (01) ==
PROVIDERS: PCP Nurse Practitioner; Visit Provider Nurse Practitioner
DX: A41.9 Sepsis, unspecified organism (principal); R65.21 Severe sepsis with septic shock; Z79.899 Other long term (current) drug therapy; Z53.9 Procedure and treatment not carried out, unspecified reason
CPT/HCPCS: 96374; J1335; J1642

== ENCOUNTER 2024-02-23 14:30 | Oncology outpatient (recurring) (ONCR) | payer OTHER, SELFPAY ==
[2024-02-21 15:31] VITALS: BP 94/63; PULSE 98; RESP 16; TEMP 36.2; O2SAT 99
[2024-02-21] MEDS: ertapenem 1,000 mg SDV 1000 MG IVP (15:46)
[2024-02-22] MEDS: ertapenem 1,000 mg SDV 1000 MG IVP (15:01)
[2024-02-22 15:10] VITALS: BP 95/61; PULSE 91; RESP 18; TEMP 36.6; O2SAT 98
[2024-02-23] MEDS: ertapenem 1,000 mg SDV 1000 MG IVP (14:41)
--- NOTE | 2024-02-23 16:10 | PC.NURSE ---
Removed pts PICC line from left upper arm. 41cm line removed, intact. Pt tolerated well. No redness or irritation noted. Educated on holding pressure if bleeding noted and remove bandage after 24 hours. JW
== END 2024-03-22 23:59 | disposition home or self-care (01) ==
PROVIDERS: PCP Nurse Practitioner; Visit Provider Nurse Practitioner
DX: A41.9 Sepsis, unspecified organism (principal); R65.21 Severe sepsis with septic shock; Z79.899 Other long term (current) drug therapy; Z53.9 Procedure and treatment not carried out, unspecified reason
CPT/HCPCS: 96374; J1335